=== PATIENT | male | born 1960 | race Caucasian/White ===

== ENCOUNTER → 2016-08-13 | Outpatient (CLI) | payer MEDICARE, BC ==
--- NOTE | 2016-08-13 11:35 | XR ---
EXAMINATION TYPE: XR cervical spine comp DATE OF EXAM: 08/13/2016 11:31 AM COMPARISON: NONE HISTORY: Pain Odontoid, frontal, lateral, and bilateral oblique views of the cervical spine are submitted. The odontoid is intact. There are no compression deformities. The prevertebral soft tissue structur es are within normal limits. Hypertrophic changes are seen anteriorly with severe degenerative disc disease C5-C6. Facet arthropathy at all levels. Foraminal encroachment C5-C6. Mild degenerative disc disease C3-C4 and C6-C7. IMPRESSION: 1. Multilevel degenerative disc disease with severe changes at C5-C6.
--- NOTE | 2016-08-13 11:35 | XR ---
EXAMINATION TYPE: XR chest 2V DATE OF EXAM: 08/13/2016 11:31 AM COMPARISON: NONE HISTORY: Pain FINDINGS: The lungs are clear and there is no pneumothorax, pleural effusion, or focal pneumonia. Mild hypert rophic change of the spine. IMPRESSION: 1. No acute process.
--- NOTE | 2016-08-13 11:38 | XR ---
EXAMINATION TYPE: XR thoracic spine complete DATE OF EXAM: 08/13/2016 11:31 AM COMPARISON: NONE HISTORY: Pain Alignment is anatomic. There is no compression deformities. Mild multilevel degenerative disc diseas e with hypertrophic changes anteriorly. No compression deformities. IMPRESSION: 1. No acute abnormality.
--- NOTE | 2016-08-13 11:38 | XR ---
EXAM TYPE: LUMBAR SPINE X RAY SERIES COMPARISON: 05/24/2014 HISTORY: Pain FINDINGS: Alignment is anatomic. The pedicles are intact. The transverse processes are intact. There is post surgical change which appears in near-anatomic alignment. Hypertrophic changes are seen anteriorly at all levels with severe degenerative disc disease L2-L3 and L4-L5. Moderate changes at L3-L4 and L1/L 2. IMPRESSION: 1. Postsurgical change in near-anatomic alignment. 2. Multilevel moderate to severe degenerative disc disease
== END | disposition home or self-care (01) ==
LOC: RADXRMAIN 10:46
PROVIDERS: ATTEND Family Medicine
DX: Z00.01 Encounter for general adult medical examination with abnormal findings (principal); M50.31 Other cervical disc degeneration, high cervical region; M51.36 Other intervertebral disc degeneration, lumbar region; G43.709 Chronic migraine without aura, not intractable, without status migrainosus; M19.90 Unspecified osteoarthritis, unspecified site; Z98.890 Other specified postprocedural states
CPT/HCPCS: 71020; 72050; 72072; 72110

== ENCOUNTER 2018-04-12 11:21 | Inpatient (IN) | payer MEDICARE, BC ==
--- NOTE | 2018-04-12 12:02 | ED ---
General Adult HPI - General Chief complaint: Psychiatric Symptoms Stated complaint: EPS eval Source: patient, police Mode of arrival: ambulatory Limitations: no limitations - History of Present Illness Initial comments: Dictation was produced using [employer] dictation software. please excuse any grammatical, word or spelling errors. Chief Complaint: 57-year-old male brought in by police for mental evaluation History of Present Illness: Patient 57-year-old male past medical history of psychiatric disease presents via police for mental evaluation. Patient states he does not know why he is here except that he believes that his mother called patient told he needed a mental evaluation. Blood force was not here for further HPI. According the edition documentation policewoman observed patient having active visual or auditory hallucinations. Patient was also slightly incoherent. Documentation also reports that patient took mother's medications, Q's in her sleep around, displaying districted behavior and being more aggressive than usual. The ROS documented in this emergency department record has been reviewed and confirmed by me. Those systems with pertinent positive or negative responses have been documented in the HPI. All other systems are other negative and/or noncontributory. - Related Data Home Medications Medication Instructions Recorded Confirmed Aspirin EC [Ecotrin Low Dose] 81 mg PO DAILY 04/13/18 04/13/18 Multivit-Min/FA/Lycopen/Lutein 1 tab PO DAILY 04/13/18 04/13/18 [Centrum Silver Tablet] Allergies Allergy/AdvReac Type Severity Reaction Status Date / Time No Known Allergies Allergy Verified 04/13/18 07:38 Review of Systems ROS Statement: Those systems with pertinent positive or pertinent negative responses have been documented in the HPI. ROS Other: All systems not noted in ROS Statement are negative. Past Medical History Additional Past Medical History / Comment(s): Closed head injury History of Any Multi-Drug Resistant Organisms: None Reported Past Surgical History: Back Surgery Past Psychological History: Unable to Obtain Smoking Status: Current some day smoker Past Alcohol Use History: Daily Past Drug Use History: None Reported General Exam - General Exam Comments Initial Comments: PHYSICAL EXAM: General Impression: Alert and oriented x3, not in acute distress HEENT: Normocephalic atraumatic, extra-ocular movements intact, pupils equal and reactive to light bilaterally, mucous membranes moist. Cardiovascular: Heart regular rate and rhythm, S1&S2 audible, no murmurs, rubs or gallops Chest: Lungs clear to auscultation bilaterally, no rhonchi, no wheeze, no rales Abdomen: Bowel sounds present, abdomen soft, non-tender, non-distended, no organomegaly Musculoskeletal: Pulses present and equal in all extremities, no peripheral edema Motor: Power 5/5 bilaterally, no focal deficits noted Neurological: CN II-XII grossly intact, no focal motor or sensory deficits noted Skin: Intact with no visualized rashes Psych: Fleeting and manic speech Limitations: no limitations Course Vital Signs 04/12/18 04/12/18 04/13/18 11:24 20:37 06:00 Temperature 98.6 F 98.1 F 98.0 F Pulse Rate 105 H 88 78 Respiratory 18 18 18 Rate Blood Pressure 156/85 163/82 155/82 O2 Sat by Pulse 96 96 96 Oximetry 04/13/18 15:48 Temperature Pulse Rate 95 Respiratory 18 Rate Blood Pressure 167/69 O2 Sat by Pulse 97 Oximetry Medical Decision Making - Medical Decision Making ED course: Patient is a 57-year-old male with presumed history of psychiatric disease presents with petition by police for symptoms of psychosis and aggressive behavior. Vital signs upon arrival shows heart rate of 105, rest of vital signs within normal limits. Physical examination shows well-appearing male in no acute distress. Patient examining signs of psychosis. Patient was value by EPS. Patient be admitted to inpatient psychiatry. - Lab Data Result diagrams: 04/12/18 12:03 04/12/18 12:03 Lab Results 04/12/18 04/12/18 04/12/18 Range/Units 12:03 12:03 18:44 WBC 9.8 (3.8-10.6) k/uL RBC 4.66 (4.30-5.90) m/uL Hgb 15.8 (13.0-17.5) gm/dL Hct 45.0 (39.0-53.0) % MCV 96.5 (80.0-100.0) fL MCH 33.8 (25.0-35.0) pg MCHC 35.0 (31.0-37.0) g/dL RDW 12.9 (11.5-15.5) % Plt Count 183 (150-450) k/uL Neutrophils % 80 % Lymphocytes % 10 % Monocytes % 6 % Eosinophils % 1 % Basophils % 1 % Neutrophils # 7.9 H (1.3-7.7) k/uL Lymphocytes # 1.0 (1.0-4.8) k/uL Monocytes # 0.6 (0-1.0) k/uL Eosinophils # 0.1 (0-0.7) k/uL Basophils # 0.1 (0-0.2) k/uL Sodium 141 (137-145) mmol/L Potassium 3.7 (3.5-5.1) mmol/L Chloride 106 (98-107) mmol/L Carbon Dioxide 26 (22-30) mmol/L Anion Gap 9 mmol/L BUN 21 H (9-20) mg/dL Creatinine 0.64 L (0.66-1.25) mg/dL Est GFR (CKD-EPI)AfAm >90 (>60 ml/min/1.73 sqM) Est GFR (CKD-EPI)NonAf >90 (>60 ml/min/1.73 sqM) Glucose 104 H (74-99) mg/dL Calcium 9.3 (8.4-10.2) mg/dL Urine Color Yellow Urine Appearance Cloudy (Clear) Urine pH 5.5 (5.0-8.0) Ur Specific [place] 1.022 (1.001-1.035) Urine Protein 1+ H (Negative) Urine Glucose (UA) Negative (Negative) Urine Ketones 2+ H (Negative) Urine Blood Negative (Negative) Urine Nitrite Negative (Negative) Urine Bilirubin Negative (Negative) Urine Urobilinogen 2.0 (<2.0) mg/dL Ur Leukocyte Esterase Large H (Negative) Urine RBC 3 (0-5) /hpf Urine WBC 57 H (0-5) /hpf Ur Squamous Epith Cells 5 H (0-4) /hpf Amorphous Sediment Occasional H (None) /hpf Urine Mucus Many H (None) /hpf Urine Opiates Screen Not Detected (NotDetected) Ur Oxycodone Screen Not Detected (NotDetected) Urine Methadone Screen Not Detected (NotDetected) Ur Propoxyphene Screen Not Detected (NotDetected) Ur Barbiturates Screen Not Detected (NotDetected) U Tricyclic Antidepress Not Detected (NotDetected) Ur Phencyclidine Scrn Not Detected (NotDetected) Ur Amphetamines Screen Not Detected (NotDetected) U Methamphetamines Scrn Not Detected (NotDetected) U Benzodiazepines Scrn Not Detected (NotDetected) Urine Cocaine Screen Not Detected (NotDetected) U Marijuana (THC) Screen Detected H (NotDetected) Serum Alcohol <10 mg/dL Disposition Clinical Impression: Psychosis Disposition: ADMITTED IP TO THIS [facility] Condition: Good Decision Time: 16:57
[2018-04-12 12:17] LABS: Basophils # (A) 0.1 k/uL (0-0.2); Basophils % (A) 1 %; Eosinophils # (A) 0.1 k/uL (0-0.7); Eosinophils % (A) 1 %; HGB 15.8 gm/dL (13.0-17.5); Lymphocytes % (A) 10 %; MCH 33.8 pg (25.0-35.0); MCV 96.5 fL (80.0-100.0); Mean Platelet Volume 7.1; Monocytes # (A) 0.6 k/uL (0-1.0); Monocytes % (A) 6 %; Neutrophils # (A) 7.9 k/uL (1.3-7.7); Neutrophils % (A) 80 %; Platelet Count 183 k/uL (150-450); RBC 4.66 m/uL (4.30-5.90); RDW 12.9 % (11.5-15.5); WBC 9.8 k/uL (3.8-10.6)
[2018-04-12 12:26] LABS: Alcohol <10 mg/dL; Anion Gap 9 mmol/L; Blood Urea Nitrogen 21 mg/dL (9-20); Calcium 9.3 mg/dL (8.4-10.2); Carbon Dioxide 26 mmol/L (22-30); Chloride 106 mmol/L (98-107); Glucose 104 mg/dL (74-99); Potassium 3.7 mmol/L (3.5-5.1); Sodium 141 mmol/L (137-145)
[2018-04-12 18:55] LABS: Amorphous Sediment,Urine Occasional /hpf; Appearance,Urine Cloudy (Clear); Bilirubin,Urine Negative (Negative); Blood,Urine Negative (Negative); Color,Urine Yellow; Glucose,Urine (UA) Negative (Negative); Ketones,Urine 2+ (Negative); Leukocyte Esterase,Urine Large (Negative); Mucus,Urine Many /hpf; Nitrite,Urine Negative (Negative); PH, Urine 5.5 (5.0-8.0); Protein,Urine 1+ (Negative); RBC,Urine 3 /hpf (0-5); Specific Gravity,Urine 1.022 (1.001-1.035); Squamous Epithelial Cell,Urine 5 /hpf (0-4); WBC,Urine 57 /hpf (0-5)
[2018-04-12 19:02] LABS: Amphetamine Screen,Urine Not Detected (NotDetected); Barbiturate Screen,Urine Not Detected (NotDetected); Benzodiazepines Screen,Urine Not Detected (NotDetected); Cocaine Screen,Urine Not Detected (NotDetected); Methadone Screen, Urine Not Detected (NotDetected); Opiate Screen,Urine Not Detected (NotDetected); Oxycodone Screen, Urine Not Detected (NotDetected); Phencyclidine Screen,Urine Not Detected (NotDetected); Tricyclic Antidepressant,Urine Not Detected (NotDetected); Urn Cannabinoid Scrn Detected (NotDetected)
[2018-04-13] MEDS ORDERED: OLANZapine 10 MG TAB PO STA (11:40)
[2018-04-13] MEDS: LORazepam 2 MG/ML INJ IM PRN (22:50)
[2018-04-13] MEDS: ZIPRASIDONE 20 MG VIAL IM PRN (22:51)
[2018-04-14] MEDS: ACETAMINOPHEN TAB 325 MG TAB PO PRN (08:01)
[2018-04-14] MEDS: ASPIRIN 81 MG PO SCH (08:02)
[2018-04-14 09:54] LABS: Basophils # (A) 0.1 k/uL (0-0.2); Basophils % (A) 1 %; Eosinophils # (A) 0.1 k/uL (0-0.7); Eosinophils % (A) 1 %; HCT 48.6 % (39.0-53.0); HGB 16.1 gm/dL (13.0-17.5); Lymphocytes # (A) 0.9 k/uL (1.0-4.8); Lymphocytes % (A) 8 %; MCH 32.7 pg (25.0-35.0); MCHC 33.1 g/dL (31.0-37.0); MCV 98.5 fL (80.0-100.0); Mean Platelet Volume 7.1; Monocytes # (A) 0.5 k/uL (0-1.0); Monocytes % (A) 5 %; Neutrophils # (A) 9.7 k/uL (1.3-7.7); Neutrophils % (A) 86 %; Platelet Count 192 k/uL (150-450); RBC 4.94 m/uL (4.30-5.90); RDW 12.9 % (11.5-15.5); WBC 11.3 k/uL (3.8-10.6)
[2018-04-14 10:21] LABS: ALT 36 U/L (21-72); AST 43 U/L (17-59); Albumin 3.9 g/dL (3.5-5.0); Alkaline Phosphatase 83 U/L (38-126); Anion Gap 10 mmol/L; Blood Urea Nitrogen 21 mg/dL (9-20); Calcium 9.3 mg/dL (8.4-10.2); Carbon Dioxide 27 mmol/L (22-30); Chloride 104 mmol/L (98-107); Glucose 98 mg/dL (74-99); Potassium 3.7 mmol/L (3.5-5.1); Sodium 141 mmol/L (137-145); Total Bilirubin 2.5 mg/dL (0.2-1.3); Total Protein 6.8 g/dL (6.3-8.2)
--- NOTE | 2018-04-14 13:04 | CONS ---
CONSULTATION DATE OF CONSULTATION: 04/14/2018 REASON FOR CONSULTATION: Medical management requested by Dr. Brice. CONSULTATION: This is a 57-year-old patient of Dr. Powell'sandra who presented to the ER, brought in by the police. Patient is not sure who called the umbrella repairer, thinks he may have called it because he is worried about his mother taught the patient to use a mental evaluation. Pull report from the ER. The patient is having some visual and auditory hallucinations, has been also slightly incoherent. Patient apparently was taking his mother's medications and patient is more aggressive than usual. The patient is rather uncooperative during the interview, but often times she is vague. Patient just complains of low growing toenails on the right foot and has seen a instructor traffic safety in the past. The patient also got a dry boil that is below the right buttock. The patient does smoke occasionally and does medical marijuana for several reasons. Appetite is fair. No fever. Up and about. REVIEW OF SYSTEMS: CONSTITUTIONAL: None. HEENT: None. RESPIRATORY: None. CARDIOVASCULAR: None. GASTROINTESTINAL: None. GENITOURINARY: None. MUSCULOSKELETAL: None. DERMATOLOGICAL: As above, growing nails on the right foot. PSYCHIATRY: Some confusion occasionally, aggressive behavior. NEUROLOGICAL: None. PAST MEDICAL HISTORY: Closed head injury. PAST SURGICAL HISTORY: Lower back surgery. SOCIAL HISTORY: The patient smokes occasionally, medical marijuana for multiple reasons, lives with his mother, retired from [employer]. FAMILY HISTORY: Reviewed, noncontributory to presentation. HOME MEDICATIONS: Centrum Silver 1 tablet p.o. daily, aspirin 81 mg daily. ALLERGIES: None. PHYSICAL EXAMINATION: Temperature 97.7, pulse 86, respirations 16, blood pressure 163/83, pulse ox 97% on room air. GENERAL APPEARANCE: Average built, sitting up, comfortable. EYES: Pupil equal, conjunctivae normal. HEENT: External appearance of nose and ears normal, oral cavity normal. NECK: JVD not raised. Mass not palpable. RESPIRATORY: Effort normal. LUNGS: Fair air entry. CARDIOVASCULAR: First and second sounds, no edema. ABDOMEN: Soft, nontender. Liver and spleen not palpable. LYMPHATIC: No lymph node palpable in neck or axillae.. PSYCHIATRY: The patient is able answer simple questions, extremely vague. DERMATOLOGICAL: The patient has a healing boil-like scabbing, just below the right buttock at the creased level. Also, the patient has got excessively growing nails of the right foot 2nd and 3rd toe 2nd and 3rd toe. NEUROLOGICAL: Grossly intact including cranial nerves grossly intact. INVESTIGATIONS: White count 9.3, hemoglobin 16.1, potassium 3.7, BUN 21, creatinine 0.77. UA positive. ASSESSMENT: 1. Acute urinary tract infection, probably cystitis. 2. Healing on the right buttock, improving. 3. Persistently growing nails with distortion on the right foot. Will need Podiatry intervention. 4. Chronic nicotine dependence. Patient smokes a variable amount of cigarettes. 5. Medical marijuana use. PLAN: The patient will be given a nicotine patch. Will consult Podiatry. Podiatry told this patient not to scratch his boil, which is actually healing. Patient should follow up with Dr. Powell upon discharge. MMODL / IJN: [id number] /
[2018-04-14] MEDS: CEPHALEXIN 500 MG CAP PO SCH ×3 (13:09→20:12)
[2018-04-14] MEDS: NICOTINE 7MG/24HR PATCH TRANSDERM SCH ×2 (13:09→13:13)
[2018-04-14] MEDS: MULTIVITAMINS, THERA 1 EACH TAB PO SCH (13:09)
--- NOTE | 2018-04-14 13:44 | P.HP ---
Psychiatric H&P - . H&P Date: 04/14/18 History & Physical: Allergies Allergy/AdvReac Type Severity Reaction Status Date / Time No Known Allergies Allergy Verified 04/13/18 07:38 Vital Signs Temp 97.7 F 04/14/18 06:31 Pulse 86 04/14/18 06:31 Resp 16 04/14/18 06:31 BP 163/83 04/14/18 06:31 Pulse Ox 97 04/13/18 15:48 Laboratory Last Values WBC 11.3 k/uL (3.8-10.6) H 04/14/18 09:15 RBC 4.94 m/uL (4.30-5.90) 04/14/18 09:15 Hgb 16.1 gm/dL (13.0-17.5) 04/14/18 09:15 Hct 48.6 % (39.0-53.0) 04/14/18 09:15 MCV 98.5 fL (80.0-100.0) 04/14/18 09:15 MCH 32.7 pg (25.0-35.0) 04/14/18 09:15 MCHC 33.1 g/dL (31.0-37.0) 04/14/18 09:15 RDW 12.9 % (11.5-15.5) 04/14/18 09:15 Plt Count 192 k/uL (150-450) 04/14/18 09:15 Neutrophils % 86 % 04/14/18 09:15 Lymphocytes % 8 % 04/14/18 09:15 Monocytes % 5 % 04/14/18 09:15 Eosinophils % 1 % 04/14/18 09:15 Basophils % 1 % 04/14/18 09:15 Neutrophils # 9.7 k/uL (1.3-7.7) H 04/14/18 09:15 Lymphocytes # 0.9 k/uL (1.0-4.8) L 04/14/18 09:15 Monocytes # 0.5 k/uL (0-1.0) 04/14/18 09:15 Eosinophils # 0.1 k/uL (0-0.7) 04/14/18 09:15 Basophils # 0.1 k/uL (0-0.2) 04/14/18 09:15 Sodium 141 mmol/L (137-145) 04/14/18 09:15 Potassium 3.7 mmol/L (3.5-5.1) 04/14/18 09:15 Chloride 104 mmol/L (98-107) 04/14/18 09:15 Carbon Dioxide 27 mmol/L (22-30) 04/14/18 09:15 Anion Gap 10 mmol/L 04/14/18 09:15 BUN 21 mg/dL (9-20) H 04/14/18 09:15 Creatinine 0.77 mg/dL (0.66-1.25) 04/14/18 09:15 Est GFR (CKD-EPI)AfAm >90 (>60 ml/min/1.73 sqM) 04/14/18 09:15 Est GFR (CKD-EPI)NonAf >90 (>60 ml/min/1.73 sqM) 04/14/18 09:15 Glucose 98 mg/dL (74-99) 04/14/18 09:15 Calcium 9.3 mg/dL (8.4-10.2) 04/14/18 09:15 Total Bilirubin 2.5 mg/dL (0.2-1.3) H 04/14/18 09:15 AST 43 U/L (17-59) 04/14/18 09:15 ALT 36 U/L (21-72) 04/14/18 09:15 Alkaline Phosphatase 83 U/L (38-126) 04/14/18 09:15 Total Protein 6.8 g/dL (6.3-8.2) 04/14/18 09:15 Albumin 3.9 g/dL (3.5-5.0) 04/14/18 09:15 TSH 1.490 mIU/L (0.465-4.680) 04/14/18 09:15 Urine Color Yellow 04/12/18 18:44 Urine Appearance Cloudy (Clear) 04/12/18 18:44 Urine pH 5.5 (5.0-8.0) 04/12/18 18:44 Ur Specific [place] 1.022 (1.001-1.035) 04/12/18 18:44 Urine Protein 1+ (Negative) H 04/12/18 18:44 Urine Glucose (UA) Negative (Negative) 04/12/18 18:44 Urine Ketones 2+ (Negative) H 04/12/18 18:44 Urine Blood Negative (Negative) 04/12/18 18:44 Urine Nitrite Negative (Negative) 04/12/18 18:44 Urine Bilirubin Negative (Negative) 04/12/18 18:44 Urine Urobilinogen 2.0 mg/dL (<2.0) 04/12/18 18:44 Ur Leukocyte Esterase Large (Negative) H 04/12/18 18:44 Urine RBC 3 /hpf (0-5) 04/12/18 18:44 Urine WBC 57 /hpf (0-5) H 04/12/18 18:44 Ur Squamous Epith Cells 5 /hpf (0-4) H 04/12/18 18:44 Amorphous Sediment Occasional /hpf (None) H 04/12/18 18:44 Urine Mucus Many /hpf (None) H 04/12/18 18:44 Urine Opiates Screen Not Detected (NotDetected) 04/12/18 18:44 Ur Oxycodone Screen Not Detected (NotDetected) 04/12/18 18:44 Urine Methadone Screen Not Detected (NotDetected) 04/12/18 18:44 Ur Propoxyphene Screen Not Detected (NotDetected) 04/12/18 18:44 Ur Barbiturates Screen Not Detected (NotDetected) 04/12/18 18:44 U Tricyclic Antidepress Not Detected (NotDetected) 04/12/18 18:44 Ur Phencyclidine Scrn Not Detected (NotDetected) 04/12/18 18:44 Ur Amphetamines Screen Not Detected (NotDetected) 04/12/18 18:44 U Methamphetamines Scrn Not Detected (NotDetected) 04/12/18 18:44 U Benzodiazepines Scrn Not Detected (NotDetected) 04/12/18 18:44 Urine Cocaine Screen Not Detected (NotDetected) 04/12/18 18:44 U Marijuana (THC) Screen Detected (NotDetected) H 04/12/18 18:44 Serum Alcohol <10 mg/dL 04/12/18 12:03 Chief Complaint: 57-year-old male brought in by police for mental evaluation History of Present Illness: Patient 57-year-old male past medical history of psychiatric disease presents via police for mental evaluation. Patient states he does not know why he is here except that he believes that his mother called patient told he needed a mental evaluation. Blood force was not here for further HPI. According the edition documentation police academy instructor observed patient having active visual or auditory hallucinations. Patient was also slightly incoherent. Documentation also reports that patient took mother's medications, Q's in her sleep around, displaying districted behavior and being more aggressive than usual. 04/14/18 13:22 Assessment and Plan (1) Psychosis Current Visit: Yes Status: Acute Priority: High Code(s): F29 - UNSP PSYCHOSIS NOT DUE TO A SUBSTANCE OR KNOWN PHYSIOL COND SNOMED Code(s): 62047986 Plan: Chief Complaint: 57-year-old male brought in by police for mental evaluation due to his agitation and confrontation of the place when the police were called to his house. History of Present Illness: Patient 57-year-old male past medical history of psychiatric disease presents via police for mental evaluation. Patient states he does not know why he is here except that he believes that his mother called patient told he needed a mental evaluation. According the edition documentation police academy instructor observed patient having active visual or auditory hallucinations. Patient was also slightly incoherent. Documentation also reports that patient took mother's medications, Q's in his thoughts being displaying districted behavior and being more aggressive than usual. Past Psychiatric History: [Patient unable to give an accurate history becomes irritable and agitated and accusing his civil rights being taken away and that he needs to talk to the FBI called [facility]] Drug/Alcohol Abuse History: [Unable to get accurate history because refuses to participate] Past Medical History Additional Past Medical History / Comment(s): Closed head injury History of Any Multi-Drug Resistant Organisms: None Reported Past Surgical History: Back Surgery Past Psychological History: Unable to Obtain Smoking Status: Current some day smoker Past Alcohol Use History: Daily Past Drug Use History: None Reported Current Medications: [None reported at the current time] Constitutional Review: [Inclines of his toenails] Musculoskeletal Examination - Abnormal/Involuntary Movements: [none,] Strength: [greater than antigravity (greater than/equal to 3/5) in all extremities] Muscle Tone: [no impairment] Gait: [grossly normal] Station: [grossly normal] Mental Status Examination - General Appearance: [disheveled, bizarre,appears older than stated age] Speech/Language: [ rapid, rambled, mumbling, hesitant, halting, expressive, soft , ] Attitude/Behavior: [ guarded, irritable, withdrawn, indifferent] Mood: [anxious, elated, irritable, angry] Affect: [llabile, blunted constricted] Orientation: [time, person, place situation does not participate and full orientation] Thought Content: delusions] Risk Factors: irritable and poor historian] Perception: [wnl] Thought Processes: [concrete, circumstantial, tangential] Concentration/Attention Span: [impaired] [Per observation and interview with the patient] Recent Memory: [ impaired] [0 out of 3 in 3 minutes] Remote Memory: [ impaired] [past events, as related history] Intelligence: [below average] [based on history, based on vocabulary, syntax, grammar, and content] Judgement: [poor] [per patient's behavior/history of present illness] Insight: [poor] [understanding severity of illness/history of present illness] Admitting Diagnosis: [Acute psychosis: [place]] Patient Strengths - Steady financial stability: Housing stability: Interpersonal relationships and supports available - family : Patient Limitations: [medication, non-compliance, pathological/unsupported environment, no interests, intellectual impairment Initial Plan of Care: [Patient was brought in by the [facility] with an application for involuntary hospitalization, clinical certification in the emergency room was filled out and a second certification for inpatient hospitalization was filled out today and placed in the chart. The patient is unable to participate in any treatment plan is angry irritable and agitated and walks out of the room without being able to sit and focus. Therefore he'll be admitted involuntary basis on [facility] unit for involuntary treatment on the psychiatric unit and at best will be a very difficult patient.] Estimated Length of Stay: [7-10 days] Initial Discharge Plan: [ [facility], referred to therapist] Prognosis: [ guarded] Justification for Inpatient Hospitalization - [agitation, anxiety resulting in significant loss of functioning.] [Dangerous to others, or property with need for controlled environment.] [Emotional or behavioral conditions and complications requiring 24 hour medical and nursing care.] [Need for special drug therapy, or other therapeutic program requiring continuous hospitalization.] [Failure of social functioning.] [Legally mandated admission.]
[2018-04-15] MEDS: CEPHALEXIN 500 MG CAP PO SCH ×3 (08:21→20:51)
[2018-04-15] MEDS: NICOTINE 7MG/24HR PATCH TRANSDERM SCH (08:21)
[2018-04-15] MEDS: ASPIRIN 81 MG PO SCH (08:21)
[2018-04-15] MEDS: MULTIVITAMINS, THERA 1 EACH TAB PO SCH (11:46)
--- NOTE | 2018-04-15 13:38 | P.PN ---
Subjective Progress Note Date: 04/15/18 Principal diagnosis: Acute psychosis Interval history today includes: Patient remains quite tense and irritable agitating wonders the unit History of Present Illness: Patient 57-year-old male past medical history of psychiatric disease presents via police for mental evaluation. Patient states he does not know why he is here except that he believes that his mother called patient told he needed a mental evaluation. Blood force was not here for further HPI. According the edition documentation police inspector observed patient having active visual or auditory hallucinations. Patient was also slightly incoherent. Documentation also reports that patient took mother's medications, Q's in her sleep around, displaying districted behavior and being more aggressive than usual. Past Medical History Additional Past Medical History / Comment(s): Closed head injury History of Any Multi-Drug Resistant Organisms: None Reported Past Surgical History: Back Surgery Past Psychological History: Unable to Obtain Smoking Status: Current some day smoker Past Alcohol Use History: Daily Past Drug Use History: None Reported Current Medications: [None reported at the current time] Constitutional Review: [Inclines of his toenails] Mental Status Examination - General Appearance: [disheveled, bizarre,appears older than stated age] Speech/Language: [ rapid, rambled, mumbling, hesitant, halting, expressive, soft , ] Attitude/Behavior: [ guarded, irritable, withdrawn, indifferent] Mood: [anxious, elated, irritable, angry] Affect: [llabile, blunted constricted] Orientation: [time, person, place situation does not participate and full orientation] Thought Content: delusions] Risk Factors: irritable and poor historian] Perception: [wnl] Thought Processes: [concrete, circumstantial, tangential] Concentration/Attention Span: [impaired] [Per observation and interview with the patient] Recent Memory: [ impaired] [0 out of 3 in 3 minutes] Remote Memory: [ impaired] [past events, as related history] Intelligence: [below average] [based on history, based on vocabulary, syntax, grammar, and content] Judgement: [poor] [per patient's behavior/history of present illness] Insight: [poor] [understanding severity of illness/history of present illness] Plan involuntary psychiatric hospitalization waiting for [address] and remain in a safe environment including staff. Client is not willing to participate in care at the present time. Objective - Vital Signs Vital signs: Vital Signs Temp 97.7 F 04/14/18 06:31 Pulse 86 04/14/18 06:31 Resp 16 04/14/18 06:31 BP 163/83 04/14/18 06:31 Pulse Ox 97 04/13/18 15:48 - Labs CBC & Chem 7: 04/14/18 09:15 04/14/18 09:15 Assessment and Plan (1) Psychosis Current Visit: Yes Status: Acute Priority: High Code(s): F29 - UNSP PSYCHOSIS NOT DUE TO A SUBSTANCE OR KNOWN PHYSIOL COND SNOMED Code(s): 12579539 Plan: Chief Complaint: 57-year-old male brought in by police for mental evaluation due to his agitation and confrontation of the place when the police were called to his house. History of Present Illness: Patient 57-year-old male past medical history of psychiatric disease presents via police for mental evaluation. Patient states he does not know why he is here except that he believes that his mother called patient told he needed a mental evaluation. According the edition documentation police inspector observed patient having active visual or auditory hallucinations. Patient was also slightly incoherent. Documentation also reports that patient took mother's medications, Q's in his thoughts being displaying districted behavior and being more aggressive than usual. Past Psychiatric History: [Patient unable to give an accurate history becomes irritable and agitated and accusing his civil rights being taken away and that he needs to talk to the FBI called [facility]] Drug/Alcohol Abuse History: [Unable to get accurate history because refuses to participate] Past Medical History Additional Past Medical History / Comment(s): Closed head injury History of Any Multi-Drug Resistant Organisms: None Reported Past Surgical History: Back Surgery Past Psychological History: Unable to Obtain Smoking Status: Current some day smoker Past Alcohol Use History: Daily Past Drug Use History: None Reported Current Medications: [None reported at the current time] Constitutional Review: [Inclines of his toenails] Musculoskeletal Examination - Abnormal/Involuntary Movements: [none,] Strength: [greater than antigravity (greater than/equal to 3/5) in all extremities] Muscle Tone: [no impairment] Gait: [grossly normal] Station: [grossly normal] Mental Status Examination - General Appearance: [disheveled, bizarre,appears older than stated age] Speech/Language: [ rapid, rambled, mumbling, hesitant, halting, expressive, soft , ] Attitude/Behavior: [ guarded, irritable, withdrawn, indifferent] Mood: [anxious, elated, irritable, angry] Affect: [llabile, blunted constricted] Orientation: [time, person, place situation does not participate and full orientation] Thought Content: delusions] Risk Factors: irritable and poor historian] Perception: [wnl] Thought Processes: [concrete, circumstantial, tangential] Concentration/Attention Span: [impaired] [Per observation and interview with the patient] Recent Memory: [ impaired] [0 out of 3 in 3 minutes] Remote Memory: [ impaired] [past events, as related history] Intelligence: [below average] [based on history, based on vocabulary, syntax, grammar, and content] Judgement: [poor] [per patient's behavior/history of present illness] Insight: [poor] [understanding severity of illness/history of present illness] Admitting Diagnosis: [Acute psychosis: [place]] Patient Strengths - Steady financial stability: Housing stability: Interpersonal relationships and supports available - family : Patient Limitations: [medication, non-compliance, pathological/unsupported environment, no interests, intellectual impairment Initial Plan of Care: [Patient was brought in by the [facility] with an application for involuntary hospitalization, clinical certification in the emergency room was filled out and a second certification for inpatient hospitalization was filled out today and placed in the chart. The patient is unable to participate in any treatment plan is angry irritable and agitated and walks out of the room without being able to sit and focus. Therefore he'll be admitted involuntary basis on [facility] unit for involuntary treatment on the psychiatric unit and at best will be a very difficult patient.] Estimated Length of Stay: [7-10 days] Initial Discharge Plan: [ [facility], referred to therapist] Prognosis: [ guarded] Justification for Inpatient Hospitalization - [agitation, anxiety resulting in significant loss of functioning.] [Dangerous to others, or property with need for controlled environment.] [Emotional or behavioral conditions and complications requiring 24 hour medical and nursing care.] [Need for special drug therapy, or other therapeutic program requiring continuous hospitalization.] [Failure of social functioning.] [Legally mandated admission.]
[2018-04-16] MEDS: ASPIRIN 81 MG PO SCH (08:02)
[2018-04-16] MEDS: NICOTINE 7MG/24HR PATCH TRANSDERM SCH (08:02)
[2018-04-16] MEDS: CEPHALEXIN 500 MG CAP PO SCH ×3 (08:02→20:41)
[2018-04-16] MEDS: MULTIVITAMINS, THERA 1 EACH TAB PO SCH (12:15)
--- NOTE | 2018-04-16 12:33 | P.PN ---
Subjective Progress Note Date: 04/16/18 Principal diagnosis: Acute psychosis Interval history today includes: Patient remains quite tense and irritable agitating wonders the unit History of Present Illness: Patient 57-year-old male past medical history of psychiatric disease presents via police for mental evaluation. Patient states he does not know why he is here except that he believes that his mother called patient told he needed a mental evaluation. Blood force was not here for further HPI. According the edition documentation police reserves commander observed patient having active visual or auditory hallucinations. Patient was also slightly incoherent. Documentation also reports that patient took mother's medications, Q's in her sleep around, displaying districted behavior and being more aggressive than usual. Past Medical History Additional Past Medical History / Comment(s): Closed head injury History of Any Multi-Drug Resistant Organisms: None Reported Past Surgical History: Back Surgery Past Psychological History: Unable to Obtain Smoking Status: Current some day smoker Past Alcohol Use History: Daily Past Drug Use History: None Reported Current Medications: [None reported at the current time] Constitutional Review: [Inclines of his toenails] Mental Status Examination - General Appearance: [disheveled, bizarre,appears older than stated age] Speech/Language: [ rapid, rambled, mumbling, hesitant, halting, expressive, soft , ] Attitude/Behavior: [ guarded, irritable, withdrawn, indifferent] Mood: [anxious, elated, irritable, angry] Affect: [llabile, blunted constricted] Orientation: [time, person, place situation does not participate and full orientation] Thought Content: delusions] Risk Factors: irritable and poor historian] Perception: [wnl] Thought Processes: [concrete, circumstantial, tangential] Concentration/Attention Span: [impaired] [Per observation and interview with the patient] Recent Memory: [ impaired] [0 out of 3 in 3 minutes] Remote Memory: [ impaired] [past events, as related history] Intelligence: [below average] [based on history, based on vocabulary, syntax, grammar, and content] Judgement: [poor] [per patient's behavior/history of present illness] Insight: [poor] [understanding severity of illness/history of present illness] Plan involuntary psychiatric hospitalization waiting for [address] and remain in a safe environment including staff. Client is not willing to participate in care at the present time. Objective - Vital Signs Vital signs: Vital Signs Temp 98 F 04/16/18 06:08 Pulse 89 04/16/18 06:08 Resp 20 04/16/18 06:08 BP 171/89 04/16/18 06:08 Pulse Ox 97 04/13/18 15:48 - Labs CBC & Chem 7: 04/14/18 09:15 04/14/18 09:15 Assessment and Plan (1) Psychosis Current Visit: Yes Status: Acute Priority: High Code(s): F29 - UNSP PSYCHOSIS NOT DUE TO A SUBSTANCE OR KNOWN PHYSIOL COND SNOMED Code(s): 71757760
[2018-04-17] MEDS: ASPIRIN 81 MG PO SCH (09:02)
[2018-04-17] MEDS: NICOTINE 7MG/24HR PATCH TRANSDERM SCH (09:02)
[2018-04-17] MEDS: CEPHALEXIN 500 MG CAP PO SCH ×3 (09:02→21:43)
--- NOTE | 2018-04-17 10:04 | P.PN ---
Subjective Progress Note Date: 04/17/18 Principal diagnosis: Acute psychosis Interval history today includes: Patient remains quite tense and irritable agitating wonders the unit he is not participating in any treatment at the present time. History of Present Illness: Patient 57-year-old male past medical history of psychiatric disease presents via police for mental evaluation. Patient states he does not know why he is here except that he believes that his mother called patient told he needed a mental evaluation. Blood force was not here for further HPI. According the edition documentation police officer crime prevention observed patient having active visual or auditory hallucinations. Patient was also slightly incoherent. Documentation also reports that patient took mother's medications, Q's in her sleep around, displaying districted behavior and being more aggressive than usual. Past Medical History Additional Past Medical History / Comment(s): Closed head injury History of Any Multi-Drug Resistant Organisms: None Reported Past Surgical History: Back Surgery Past Psychological History: Unable to Obtain Smoking Status: Current some day smoker Past Alcohol Use History: Daily Past Drug Use History: None Reported Current Medications: [None reported at the current time] Constitutional Review: [Inclines of his toenails] Mental Status Examination - General Appearance: [disheveled, bizarre,appears older than stated age] Speech/Language: [ rapid, rambled, mumbling, hesitant, halting, expressive, soft , ] Attitude/Behavior: [ guarded, irritable, withdrawn, indifferent] Mood: [anxious, elated, irritable, angry] Affect: [llabile, blunted constricted] Orientation: [time, person, place situation does not participate and full orientation] Thought Content: delusions] Risk Factors: irritable and poor historian] Perception: [wnl] Thought Processes: [concrete, circumstantial, tangential] Concentration/Attention Span: [impaired] [Per observation and interview with the patient] Recent Memory: [ impaired] [0 out of 3 in 3 minutes] Remote Memory: [ impaired] [past events, as related history] Intelligence: [below average] [based on history, based on vocabulary, syntax, grammar, and content] Judgement: [poor] [per patient's behavior/history of present illness] Insight: [poor] [understanding severity of illness/history of present illness] Plan involuntary psychiatric hospitalization waiting for [address] and remain in a safe environment including staff. Client is not willing to participate in care at the present time. Objective - Vital Signs Vital signs: Vital Signs Temp 98.7 F 04/17/18 04:28 Pulse 80 04/17/18 04:28 Resp 20 04/16/18 06:08 BP 150/90 04/17/18 04:28 Pulse Ox 97 04/13/18 15:48 - Labs CBC & Chem 7: 04/14/18 09:15 04/14/18 09:15 Assessment and Plan (1) Psychosis Current Visit: Yes Status: Acute Priority: High Code(s): F29 - UNSP PSYCHOSIS NOT DUE TO A SUBSTANCE OR KNOWN PHYSIOL COND SNOMED Code(s): 88740458
--- NOTE | 2018-04-17 11:28 | P.GSHP ---
History of Present Illness H&P Date: 04/17/18 Chief Complaint: Elongated painful nails bilateral Patient is being seen for treatment of painful elongated nails. Patient at this time is agitated and is on the care for psychosis. It appears patient is not ready to have these nails removed on today's date. Past Medical History Additional Past Medical History / Comment(s): Closed head injury History of Any Multi-Drug Resistant Organisms: None Reported Past Surgical History: Back Surgery Smoking Status: Current every day smoker Medications and Allergies Home Medications Medication Instructions Recorded Confirmed Type Aspirin EC [Ecotrin Low Dose] 81 mg PO DAILY 04/13/18 04/17/18 History Multivit-Min/FA/Lycopen/Lutein 1 tab PO DAILY 04/13/18 04/17/18 History [Centrum Silver Tablet] Allergies Allergy/AdvReac Type Severity Reaction Status Date / Time No Known Allergies Allergy Verified 04/17/18 05:31 Surgical - Exam Vital Signs Temp Pulse Resp BP Pulse Ox 98.6 F 105 H 18 156/85 96 04/12/18 11:24 04/12/18 11:24 04/12/18 11:24 04/12/18 11:24 04/12/18 11:24 - General Patient was walking the floors with apparent agitation and psychosis. Results - Labs 04/14/18 09:15 04/14/18 09:15 Assessment and Plan Assessment: Painful elongated nails 10 Agitated psychosis Plan: Exam. Review medical history. Due to the patient's current mental status will reschedule patient for treatment of these nails. We will not be able to safely reduce these with patient's current agitated status.
[2018-04-17] MEDS: MULTIVITAMINS, THERA 1 EACH TAB PO SCH (11:51)
[2018-04-17] MEDS: ZIPRASIDONE 20 MG VIAL IM PRN (12:58)
[2018-04-17] MEDS: LORazepam 2 MG/ML INJ IM PRN (12:59)
[2018-04-17] MEDS ORDERED: chlorproMAZINE 25 MG/ML 2 ML AMP IM PRN (13:10)
[2018-04-18] MEDS: LORazepam 2 MG/ML INJ IM PRN (01:33)
[2018-04-18] MEDS: NICOTINE 7MG/24HR PATCH TRANSDERM SCH (11:05)
[2018-04-18] MEDS: ASPIRIN 81 MG PO SCH (11:23)
[2018-04-18] MEDS: CEPHALEXIN 500 MG CAP PO SCH ×3 (11:23→20:41)
[2018-04-18] MEDS: MULTIVITAMINS, THERA 1 EACH TAB PO SCH (12:30)
[2018-04-18] MEDS: MAGNESIUM HYDROXIDE 2,400 MG/10 ML CUP PO PRN ×2 (13:54→20:40)
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
[2018-04-18] MEDS: chlorproMAZINE 25 MG TAB PO SCH ×3 (16:05→20:45)
[2018-04-18] MEDS: MAG HYDROX/AL HYDROX/SIMETH 30 ML CUP PO PRN (20:40)
[2018-04-19] MEDS: CEPHALEXIN 500 MG CAP PO SCH ×4 (09:48→20:40)
[2018-04-19] MEDS: ASPIRIN 81 MG PO SCH (09:48)
[2018-04-19] MEDS: NICOTINE 7MG/24HR PATCH TRANSDERM SCH (09:49)
[2018-04-19] MEDS: chlorproMAZINE 25 MG TAB PO SCH ×3 (09:51→20:43)
[2018-04-19] MEDS: MULTIVITAMINS, THERA 1 EACH TAB PO SCH (12:07)
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
[2018-04-19] MEDS: ACETAMINOPHEN TAB 325 MG TAB PO PRN (16:49)
[2018-04-19] MEDS: MAG HYDROX/AL HYDROX/SIMETH 30 ML CUP PO PRN (20:42)
[2018-04-20] MEDS: ASPIRIN 81 MG PO SCH (07:59)
[2018-04-20] MEDS: CEPHALEXIN 500 MG CAP PO SCH ×3 (08:00→20:38)
[2018-04-20] MEDS: NICOTINE 7MG/24HR PATCH TRANSDERM SCH (08:00)
[2018-04-20] MEDS: chlorproMAZINE 25 MG TAB PO SCH ×3 (08:00→20:37)
[2018-04-20] MEDS: MAGNESIUM HYDROXIDE 2,400 MG/10 ML CUP PO PRN (08:02)
--- NOTE | 2018-04-20 09:52 | P.PN ---
Subjective Progress Note Date: 04/20/18 Principal diagnosis: Acute psychosis Interval history today includes: Patient remains quite tense and irritable agitating wonders the unit he is not participating in any treatment at the present time. History of Present Illness: Patient 57-year-old male past medical history of psychiatric disease presents via police for mental evaluation. Patient states he does not know why he is here except that he believes that his mother called patient told he needed a mental evaluation. Blood force was not here for further HPI. According the edition documentation police chief deputy observed patient having active visual or auditory hallucinations. Patient was also slightly incoherent. Documentation also reports that patient took mother's medications, Q's in her sleep around, displaying districted behavior and being more aggressive than usual. Past Medical History Additional Past Medical History / Comment(s): Closed head injury History of Any Multi-Drug Resistant Organisms: None Reported Past Surgical History: Back Surgery Past Psychological History: Unable to Obtain Smoking Status: Current some day smoker Past Alcohol Use History: Daily Past Drug Use History: None Reported Current Medications: [None reported at the current time] Constitutional Review: [Inclines of his toenails] Mental Status Examination - General Appearance: [disheveled, bizarre,appears older than stated age] Speech/Language: [ rapid, rambled, mumbling, hesitant, halting, expressive, soft , ] Attitude/Behavior: [ guarded, irritable, withdrawn, indifferent] Mood: [anxious, elated, irritable, angry] Affect: [llabile, blunted constricted] Orientation: [time, person, place situation does not participate and full orientation] Thought Content: delusions] Risk Factors: irritable and poor historian] Perception: [wnl] Thought Processes: [concrete, circumstantial, tangential] Concentration/Attention Span: [impaired] [Per observation and interview with the patient] Recent Memory: [ impaired] [0 out of 3 in 3 minutes] Remote Memory: [ impaired] [past events, as related history] Intelligence: [below average] [based on history, based on vocabulary, syntax, grammar, and content] Judgement: [poor] [per patient's behavior/history of present illness] Insight: [poor] [understanding severity of illness/history of present illness] Plan involuntary psychiatric hospitalization waiting for [address] and remain in a safe environment including staff. Client is not willing to participate in care at the present time. Objective - Vital Signs Vital signs: Vital Signs Temp 98.3 F 04/20/18 00:17 Pulse 94 04/20/18 00:17 Resp 16 04/20/18 00:17 BP 137/80 04/20/18 00:17 Pulse Ox 97 04/13/18 15:48 Intake & Output 04/19/18 04/20/18 04/20/18 18:59 06:59 18:59 Weight 84.5 kg - Labs CBC & Chem 7: 04/14/18 09:15 04/14/18 09:15 Assessment and Plan (1) Psychosis Current Visit: Yes Status: Acute Priority: High Code(s): F29 - UNSP PSYCHOSIS NOT DUE TO A SUBSTANCE OR KNOWN PHYSIOL COND SNOMED Code(s): 97604200
[2018-04-20] MEDS: ACETAMINOPHEN TAB 325 MG TAB PO PRN ×2 (10:29→15:12)
[2018-04-20] MEDS: MULTIVITAMINS, THERA 1 EACH TAB PO SCH (10:30)
[2018-04-20 12:28] LABS: Amorphous Sediment,Urine Rare /hpf; Appearance,Urine Cloudy (Clear); Bilirubin,Urine Negative (Negative); Blood,Urine Negative (Negative); Color,Urine Light Yellow; Glucose,Urine (UA) Negative (Negative); Ketones,Urine Negative (Negative); Leukocyte Esterase,Urine Negative (Negative); Mucus,Urine Rare /hpf; Nitrite,Urine Negative (Negative); Protein,Urine Negative (Negative); RBC,Urine 2 /hpf (0-5); Specific Gravity,Urine 1.007 (1.001-1.035); Urobilinogen,Urine <2.0 mg/dL (<2.0); WBC,Urine 2 /hpf (0-5)
[2018-04-21] MEDS: ACETAMINOPHEN TAB 325 MG TAB PO PRN ×2 (02:55→11:33)
[2018-04-21] MEDS: ASPIRIN 81 MG PO SCH (09:10)
[2018-04-21] MEDS: MULTIVITAMINS, THERA 1 EACH TAB PO SCH (09:10)
[2018-04-21] MEDS: chlorproMAZINE 25 MG TAB PO SCH ×3 (09:11→20:31)
[2018-04-21] MEDS: DOCUSATE 100 MG CAP PO SCH ×2 (11:32→20:31)
--- NOTE | 2018-04-21 14:19 | P.PN ---
Subjective Progress Note Date: 04/21/18 Principal diagnosis: Acute psychosis Interval history today includes: Patient remains quite tense and irritable agitating wonders the unit he is not participating in any treatment at the present time. I approached patient today about him going court tomorrow he became enraged and walked away. History of Present Illness: Patient 57-year-old male past medical history of psychiatric disease presents via police for mental evaluation. Patient states he does not know why he is here except that he believes that his mother called patient told he needed a mental evaluation. Blood force was not here for further HPI. According the edition documentation vice squad police officer observed patient having active visual or auditory hallucinations. Patient was also slightly incoherent. Documentation also reports that patient took mother's medications, Q's in her sleep around, displaying districted behavior and being more aggressive than usual. Past Medical History Additional Past Medical History / Comment(s): Closed head injury History of Any Multi-Drug Resistant Organisms: None Reported Past Surgical History: Back Surgery Past Psychological History: Unable to Obtain Smoking Status: Current some day smoker Past Alcohol Use History: Daily Past Drug Use History: None Reported Current Medications: [None reported at the current time] Constitutional Review: [Inclines of his toenails] Mental Status Examination - General Appearance: [disheveled, bizarre,appears older than stated age] Speech/Language: [ rapid, rambled, mumbling, hesitant, halting, expressive, soft , ] Attitude/Behavior: [ guarded, irritable, withdrawn, indifferent] Mood: [anxious, elated, irritable, angry] Affect: [labile, blunted constricted] Orientation: [time, person, place situation does not participate and full orientation] Thought Content: delusions] Risk Factors: irritable and poor historian] Perception: [wnl] Thought Processes: [concrete, circumstantial, tangential] Concentration/Attention Span: [impaired] [Per observation and interview with the patient] Recent Memory: [ impaired] [0 out of 3 in 3 minutes] Remote Memory: [ impaired] [past events, as related history] Intelligence: [below average] [based on history, based on vocabulary, syntax, grammar, and content] Judgement: [poor] [per patient's behavior/history of present illness] Insight: [poor] [understanding severity of illness/history of present illness] Plan involuntary psychiatric hospitalization waiting for probate [address] and remain in a safe environment including staff. Client is not willing to participate in care at the present time. Objective - Vital Signs Vital signs: Vital Signs Temp 98.1 F 04/21/18 00:51 Pulse 83 04/21/18 00:51 Resp 16 04/21/18 00:51 BP 158/90 04/21/18 10:02 Pulse Ox 97 04/13/18 15:48 - Labs CBC & Chem 7: 04/14/18 09:15 04/14/18 09:15 Assessment and Plan (1) Psychosis Current Visit: Yes Status: Acute Priority: High Code(s): F29 - UNSP PSYCHOSIS NOT DUE TO A SUBSTANCE OR KNOWN PHYSIOL COND SNOMED Code(s): 50582141
[2018-04-21] MEDS: LORazepam 1 MG TAB PO PRN (20:58)
[2018-04-21] MEDS: MAGNESIUM HYDROXIDE 2,400 MG/10 ML CUP PO PRN (21:02)
[2018-04-22] MEDS: ASPIRIN 81 MG PO SCH (07:39)
[2018-04-22] MEDS: DOCUSATE 100 MG CAP PO SCH ×2 (07:39→20:59)
[2018-04-22] MEDS: chlorproMAZINE 25 MG TAB PO SCH ×2 (07:39→16:17)
--- NOTE | 2018-04-22 10:24 | P.PN ---
Subjective Progress Note Date: 04/22/18 Principal diagnosis: Acute psychosis Interval history today includes: Patient remains quite tense and irritable agitating wonders the unit he is not participating in any treatment at the present time. Again I approached the patient today regarding court and help, help him his response was inappropriate angry agitated tangential and confused. History of Present Illness: Patient 57-year-old male past medical history of psychiatric disease presents via police for mental evaluation. Patient states he does not know why he is here except that he believes that his mother called patient told he needed a mental evaluation. Blood force was not here for further HPI. According the edition documentation global safety officer observed patient having active visual or auditory hallucinations. Patient was also slightly incoherent. Documentation also reports that patient took mother's medications, Q's in her sleep around, displaying districted behavior and being more aggressive than usual. Past Medical History Additional Past Medical History / Comment(s): Closed head injury History of Any Multi-Drug Resistant Organisms: None Reported Past Surgical History: Back Surgery Past Psychological History: Unable to Obtain Smoking Status: Current some day smoker Past Alcohol Use History: Daily Past Drug Use History: None Reported Current Medications: [None reported at the current time] Constitutional Review: [Inclines of his toenails] Mental Status Examination - General Appearance: [disheveled, bizarre,appears older than stated age] Speech/Language: [ rapid, rambled, mumbling, hesitant, halting, expressive, soft , ] Attitude/Behavior: [ guarded, irritable, withdrawn, indifferent] Mood: [anxious, elated, irritable, angry] Affect: [labile, blunted constricted] Orientation: [time, person, place situation does not participate and full orientation] Thought Content: delusions] Risk Factors: irritable and poor historian] Perception: [wnl] Thought Processes: [concrete, circumstantial, tangential] Concentration/Attention Span: [impaired] [Per observation and interview with the patient] Recent Memory: [ impaired] [0 out of 3 in 3 minutes] Remote Memory: [ impaired] [past events, as related history] Intelligence: [below average] [based on history, based on vocabulary, syntax, grammar, and content] Judgement: [poor] [per patient's behavior/history of present illness] Insight: [poor] [understanding severity of illness/history of present illness] Plan involuntary psychiatric hospitalization waiting for probate Court today at 2 PM and remain in a safe environment including staff. Client is not willing to participate in care at the present time. Objective - Vital Signs Vital signs: Vital Signs Temp 97.5 F L 04/22/18 06:41 Pulse 79 04/22/18 06:41 Resp 16 04/22/18 06:41 BP 171/90 04/22/18 06:41 Pulse Ox 97 04/13/18 15:48 - Labs CBC & Chem 7: 04/14/18 09:15 04/14/18 09:15 Assessment and Plan (1) Psychosis Current Visit: Yes Status: Acute Priority: High Code(s): F29 - UNSP PSYCHOSIS NOT DUE TO A SUBSTANCE OR KNOWN PHYSIOL COND SNOMED Code(s): 52138467
[2018-04-22] MEDS: LORazepam 1 MG TAB PO PRN (10:36)
[2018-04-22] MEDS: ACETAMINOPHEN TAB 325 MG TAB PO PRN (10:37)
[2018-04-22] MEDS: MULTIVITAMINS, THERA 1 EACH TAB PO SCH (10:37)
[2018-04-22] MEDS ORDERED: HALOPERIDOL LACTATE 5 MG/ML 1 ML VIAL IM PRN (16:18)
[2018-04-22] MEDS: HALOPERIDOL 1 MG TAB PO SCH (20:57)
[2018-04-23] MEDS: ACETAMINOPHEN TAB 325 MG TAB PO PRN ×3 (07:19→20:15)
[2018-04-23] MEDS: HALOPERIDOL 1 MG TAB PO SCH (09:55)
[2018-04-23] MEDS: ASPIRIN 81 MG PO SCH (09:56)
[2018-04-23] MEDS: DOCUSATE 100 MG CAP PO SCH ×3 (09:57→20:07)
[2018-04-23 11:40] VITALS: BMI 25.2
[2018-04-23] MEDS: MULTIVITAMINS, THERA 1 EACH TAB PO SCH (12:17)
--- NOTE | 2018-04-23 15:51 | P.PN ---
Subjective Progress Note Date: 04/23/18 Principal diagnosis: Acute psychosis Interval history today includes: Patient remains tense and less irritable. Still wondersa hallway. wonders the unit he is not participating in any treatment at the present time. Again I approached the patient today regarding court and help, help him his response was inappropriate angry agitated tangential and confused. History of Present Illness: Patient 57-year-old male past medical history of psychiatric disease presents via police for mental evaluation. Patient states he does not know why he is here except that he believes that his mother called patient told he needed a mental evaluation. Blood force was not here for further HPI. According the edition documentation police chief deputy observed patient having active visual or auditory hallucinations. Patient was also slightly incoherent. Documentation also reports that patient took mother's medications, Q's in her sleep around, displaying districted behavior and being more aggressive than usual. Past Medical History Additional Past Medical History / Comment(s): Closed head injury History of Any Multi-Drug Resistant Organisms: None Reported Past Surgical History: Back Surgery Past Psychological History: Unable to Obtain Smoking Status: Current some day smoker Past Alcohol Use History: Daily Past Drug Use History: None Reported Current Medications: [None reported at the current time] Constitutional Review: [Inclines of his toenails] Mental Status Examination - General Appearance: [disheveled, bizarre,appears older than stated age] Speech/Language: [ rapid, rambled, mumbling, hesitant, halting, expressive, soft , ] Attitude/Behavior: [ guarded, irritable, withdrawn, indifferent] Mood: [anxious, elated, irritable, angry] Affect: [labile, blunted constricted] Orientation: [time, person, place situation does not participate and full orientation] Thought Content: delusions] Risk Factors: irritable and poor historian] Perception: [wnl] Thought Processes: [concrete, circumstantial, tangential] Concentration/Attention Span: [impaired] [Per observation and interview with the patient] Recent Memory: [ impaired] [0 out of 3 in 3 minutes] Remote Memory: [ impaired] [past events, as related history] Intelligence: [below average] [based on history, based on vocabulary, syntax, grammar, and content] Judgement: [poor] [per patient's behavior/history of present illness] Insight: [poor] [understanding severity of illness/history of present illness] Plan involuntary psychiatric hospitalization and remain in a safe environment including staff. Client is not willing to participate in care at the present time. Patient has side effects to Haldol and will try risperdone. "I use to take valium and librium and my doctor wrote for that, so can I get it " discussed it is not appropriate. Objective - Vital Signs Vital signs: Vital Signs Temp 98.2 F 04/23/18 06:42 Pulse 72 04/23/18 06:42 Resp 18 04/23/18 06:42 BP 138/85 04/23/18 06:42 Pulse Ox 97 04/13/18 15:48 Intake & Output 04/22/18 04/23/18 04/23/18 18:59 06:59 18:59 Weight 84.5 kg - Labs CBC & Chem 7: 04/14/18 09:15 04/14/18 09:15 Assessment and Plan (1) Psychosis Current Visit: Yes Status: Acute Priority: High Code(s): F29 - UNSP PSYCHOSIS NOT DUE TO A SUBSTANCE OR KNOWN PHYSIOL COND SNOMED Code(s): 97963156
[2018-04-23] MEDS: risperiDONE 0.25 MG TAB PO SCH (20:04)
[2018-04-24] MEDS: ACETAMINOPHEN TAB 325 MG TAB PO PRN ×5 (00:31→20:02)
[2018-04-24] MEDS: MAGNESIUM HYDROXIDE 2,400 MG/10 ML CUP PO PRN (00:33)
[2018-04-24] MEDS: DOCUSATE 100 MG CAP PO SCH ×2 (07:43→20:01)
[2018-04-24] MEDS: ASPIRIN 81 MG PO SCH (07:43)
[2018-04-24] MEDS: MULTIVITAMINS, THERA 1 EACH TAB PO SCH (12:31)
--- NOTE | 2018-04-24 13:31 | P.PN ---
Subjective Progress Note Date: 04/24/18 Principal diagnosis: Acute psychosis Interval history today includes: Patient remains less tense and less irritable. Still wonders hallway. wonders the unit he is not participating in any treatment at the present time. History of Present Illness: Patient 57-year-old male past medical history of psychiatric disease presents via police for mental evaluation. Patient states he does not know why he is here except that he believes that his mother called patient told he needed a mental evaluation. Blood force was not here for further HPI. According the edition documentation [employer] [place] police observed patient having active visual or auditory hallucinations. Patient was also slightly incoherent. Documentation also reports that patient took mother's medications. Past Medical History Additional Past Medical History / Comment(s): Closed head injury History of Any Multi-Drug Resistant Organisms: None Reported Past Surgical History: Back Surgery Past Psychological History: Unable to Obtain Smoking Status: Current some day smoker Past Alcohol Use History: Daily Past Drug Use History: None Reported Current Medications: [None reported at the current time] Constitutional Review: [Inclines of his toenails] Mental Status Examination - General Appearance: [disheveled, bizarre,appears older than stated age] Speech/Language: [ rapid, rambled, mumbling, hesitant, halting, expressive, soft , ] Attitude/Behavior: [ guarded, irritable, withdrawn, indifferent] Mood: [anxious, elated, irritable, angry] Affect: [labile, blunted constricted] Orientation: [time, person, place situation does not participate and full orientation] Thought Content: delusions] Risk Factors: irritable and poor historian] Perception: [wnl] Thought Processes: [concrete, circumstantial, tangential] Concentration/Attention Span: [impaired] [Per observation and interview with the patient] Recent Memory: [ impaired] [0 out of 3 in 3 minutes] Remote Memory: [ impaired] [past events, as related history] Intelligence: [below average] [based on history, based on vocabulary, syntax, grammar, and content] Judgement: [poor] [per patient's behavior/history of present illness] Insight: [poor] [understanding severity of illness/history of present illness] Plan involuntary psychiatric hospitalization and remain in a safe environment including staff. Client is not willing to participate in care at the present time. Patient is taking risperdone without side effects.. "I use to take valium and librium and my doctor wrote for that, so can I get it " discussed it is not appropriate. Objective - Vital Signs Vital signs: Vital Signs Temp 97.7 F 04/23/18 14:00 Pulse 70 04/23/18 14:00 Resp 14 04/23/18 14:00 BP 151/82 04/23/18 14:00 Pulse Ox 97 04/13/18 15:48 Intake & Output 04/23/18 04/24/18 04/24/18 18:59 06:59 18:59 Weight 84.5 kg - Labs CBC & Chem 7: 04/14/18 09:15 04/14/18 09:15 Assessment and Plan (1) Psychosis Current Visit: Yes Status: Acute Priority: High Code(s): F29 - UNSP PSYCHOSIS NOT DUE TO A SUBSTANCE OR KNOWN PHYSIOL COND SNOMED Code(s): 51782787
[2018-04-24] MEDS: risperiDONE 0.25 MG TAB PO SCH (20:43)
[2018-04-25] MEDS: ACETAMINOPHEN TAB 325 MG TAB PO PRN ×3 (02:40→20:01)
[2018-04-25] MEDS: LORazepam 1 MG TAB PO PRN ×2 (02:44→10:48)
[2018-04-25] MEDS: ASPIRIN 81 MG PO SCH (08:40)
[2018-04-25] MEDS: DOCUSATE 100 MG CAP PO SCH ×2 (08:41→21:26)
--- NOTE | 2018-04-25 08:46 | P.PN ---
Subjective Progress Note Date: 04/25/18 Principal diagnosis: Acute psychosis Interval history today includes: Patient remains less tense and less irritable. Still wonders hallway. wonders the unit he is not participating in any treatment at the present time. History of Present Illness: Patient 57-year-old male past medical history of psychiatric disease presents via police for mental evaluation. Patient states he does not know why he is here except that he believes that his mother called patient told he needed a mental evaluation. Blood force was not here for further HPI. According the edition documentation crime prevention police officer observed patient having active visual or auditory hallucinations. Patient was also slightly incoherent. Documentation also reports that patient took mother's medications. Past Medical History Additional Past Medical History / Comment(s): Closed head injury History of Any Multi-Drug Resistant Organisms: None Reported Past Surgical History: Back Surgery Past Psychological History: Unable to Obtain Smoking Status: Current some day smoker Past Alcohol Use History: Daily Past Drug Use History: None Reported Current Medications: [None reported at the current time] Constitutional Review: [Inclines of his toenails] Mental Status Examination - General Appearance: [disheveled, bizarre,appears older than stated age] Speech/Language: [ rapid, rambled, mumbling, hesitant, halting, expressive, soft , ] Attitude/Behavior: [ guarded, irritable, withdrawn, indifferent] Mood: [anxious, elated, irritable, angry] Affect: [labile, blunted constricted] Orientation: [time, person, place situation does not participate and full orientation] Thought Content: delusions] Risk Factors: irritable and poor historian] Perception: [wnl] Thought Processes: [concrete, circumstantial, tangential] Concentration/Attention Span: [impaired] [Per observation and interview with the patient] Recent Memory: [ impaired] [0 out of 3 in 3 minutes] Remote Memory: [ impaired] [past events, as related history] Intelligence: [below average] [based on history, based on vocabulary, syntax, grammar, and content] Judgement: [poor] [per patient's behavior/history of present illness] Insight: [poor] [understanding severity of illness/history of present illness] Plan involuntary psychiatric hospitalization and remain in a safe environment including staff. Client is not willing to participate in care at the present time. Patient is taking risperdone without side effects.. Objective - Vital Signs Vital signs: Vital Signs Temp 97.5 F L 04/25/18 06:20 Pulse 91 04/25/18 08:01 Resp 18 04/25/18 08:01 BP 125/71 04/25/18 08:01 Pulse Ox 97 04/13/18 15:48 - Labs CBC & Chem 7: 04/14/18 09:15 04/14/18 09:15 Assessment and Plan (1) Psychosis Current Visit: Yes Status: Acute Priority: High Code(s): F29 - UNSP PSYCHOSIS NOT DUE TO A SUBSTANCE OR KNOWN PHYSIOL COND SNOMED Code(s): 30885598
[2018-04-25] MEDS: MAG HYDROX/AL HYDROX/SIMETH 30 ML CUP PO PRN (10:48)
[2018-04-25] MEDS: MULTIVITAMINS, THERA 1 EACH TAB PO SCH (11:10)
[2018-04-25] MEDS ORDERED: LORazepam 2 MG/ML INJ IM STA (12:22)
[2018-04-25] MEDS ORDERED: ZIPRASIDONE 20 MG VIAL IM STA (12:22)
[2018-04-25] MEDS: CALCIUM CARBONATE LIQUID 500 MG/5 ML CUP PO SCH ×3 (12:36→21:22)
[2018-04-25] MEDS: IBUPROFEN 600 MG TAB PO SCH ×2 (16:25→21:24)
[2018-04-25] MEDS: risperiDONE 0.5 MG TAB PO SCH (22:15)
[2018-04-26] MEDS: ACETAMINOPHEN TAB 325 MG TAB PO PRN ×3 (02:50→20:50)
[2018-04-26] MEDS: CALCIUM CARBONATE LIQUID 500 MG/5 ML CUP PO SCH ×5 (03:04→20:50)
[2018-04-26] MEDS: DOCUSATE 100 MG CAP PO SCH ×2 (07:41→21:45)
[2018-04-26] MEDS: IBUPROFEN 600 MG TAB PO SCH ×3 (07:42→21:46)
[2018-04-26] MEDS: ASPIRIN 81 MG PO SCH (07:42)
[2018-04-26] MEDS: MULTIVITAMINS, THERA 1 EACH TAB PO SCH (07:43)
--- NOTE | 2018-04-26 09:18 | P.PN ---
Subjective Progress Note Date: 04/26/18 Principal diagnosis: Acute psychosis Interval history today includes: Patient remains less tense and less irritable. Still wonders hallway. wonders the unit he is not participating in any treatment at the present time. He now has hiccups History of Present Illness: Patient 57-year-old male past medical history of psychiatric disease presents via police for mental evaluation. Patient states he does not know why he is here except that he believes that his mother called patient told he needed a mental evaluation. Blood force was not here for further HPI. According the edition documentation postal delivery officer observed patient having active visual or auditory hallucinations. Patient was also slightly incoherent. Documentation also reports that patient took mother's medications. Past Medical History Additional Past Medical History / Comment(s): Closed head injury History of Any Multi-Drug Resistant Organisms: None Reported Past Surgical History: Back Surgery Past Psychological History: Unable to Obtain Smoking Status: Current some day smoker Past Alcohol Use History: Daily Past Drug Use History: None Reported Current Medications: [None reported at the current time] Constitutional Review: [Inclines of his toenails] Mental Status Examination - General Appearance: [disheveled, bizarre,appears older than stated age] Speech/Language: [ rapid, rambled, mumbling, hesitant, halting, expressive, soft , ] Attitude/Behavior: [ guarded, irritable, withdrawn, indifferent] Mood: [anxious, elated, irritable, angry] Affect: [labile, blunted constricted] Orientation: [time, person, place situation does not participate and full orientation] Thought Content: delusions] Risk Factors: irritable and poor historian] Perception: [wnl] Thought Processes: [concrete, circumstantial, tangential] Concentration/Attention Span: [impaired] [Per observation and interview with the patient] Recent Memory: [ impaired] [0 out of 3 in 3 minutes] Remote Memory: [ impaired] [past events, as related history] Intelligence: [below average] [based on history, based on vocabulary, syntax, grammar, and content] Judgement: [poor] [per patient's behavior/history of present illness] Insight: [poor] [understanding severity of illness/history of present illness] Plan involuntary psychiatric hospitalization and remain in a safe environment including staff. Client is not willing to participate in care at the present time. Patient is taking risperdone without side effects.. Objective - Vital Signs Vital signs: Vital Signs Temp 98.3 F 04/26/18 06:05 Pulse 94 04/26/18 06:05 Resp 16 04/26/18 06:05 BP 143/78 04/26/18 06:05 Pulse Ox 97 04/13/18 15:48 - Labs CBC & Chem 7: 04/14/18 09:15 04/14/18 09:15 Assessment and Plan (1) Psychosis Current Visit: Yes Status: Acute Priority: High Code(s): F29 - UNSP PSYCHOSIS NOT DUE TO A SUBSTANCE OR KNOWN PHYSIOL COND SNOMED Code(s): 90414888
[2018-04-26] MEDS ORDERED: PSYLLIUM HUSK 100% 6 GM PACKET PO STA (16:28)
[2018-04-26] MEDS: risperiDONE 0.5 MG TAB PO SCH (21:45)
[2018-04-27] MEDS: ACETAMINOPHEN TAB 325 MG TAB PO PRN ×3 (06:09→23:44)
[2018-04-27] MEDS: CALCIUM CARBONATE LIQUID 500 MG/5 ML CUP PO SCH ×4 (06:29→21:09)
[2018-04-27] MEDS: MULTIVITAMINS, THERA 1 EACH TAB PO SCH (08:54)
[2018-04-27] MEDS: ASPIRIN 81 MG PO SCH (08:54)
[2018-04-27] MEDS: IBUPROFEN 600 MG TAB PO SCH ×3 (08:55→21:10)
[2018-04-27] MEDS: DOCUSATE 100 MG CAP PO SCH ×2 (08:55→22:24)
--- NOTE | 2018-04-27 12:01 | P.PN ---
Subjective Progress Note Date: 04/27/18 Principal diagnosis: Acute psychosis Interval history today includes: Patient remains less tense and less irritable. Still wonders hallway. wonders the unit he is not participating in any treatment at the present time. He now has hiccups History of Present Illness: Patient 57-year-old male past medical history of psychiatric disease presents via police for mental evaluation. Patient states he does not know why he is here except that he believes that his mother called patient told he needed a mental evaluation. Blood force was not here for further HPI. According the edition documentation senior credit officer observed patient having active visual or auditory hallucinations. Patient was also slightly incoherent. Documentation also reports that patient took mother's medications. Past Medical History Additional Past Medical History / Comment(s): Closed head injury History of Any Multi-Drug Resistant Organisms: None Reported Past Surgical History: Back Surgery Past Psychological History: Unable to Obtain Smoking Status: Current some day smoker Past Alcohol Use History: Daily Past Drug Use History: None Reported Current Medications: [None reported at the current time] Constitutional Review: [Inclines of his toenails] Mental Status Examination - General Appearance: [disheveled, bizarre,appears older than stated age] Speech/Language: [ rapid, rambled, mumbling, hesitant, halting, expressive, soft , ] Attitude/Behavior: [ guarded, irritable, withdrawn, indifferent] Mood: [anxious, elated, irritable, angry] Affect: [labile, blunted constricted] Orientation: [time, person, place situation does not participate and full orientation] Thought Content: delusions] Risk Factors: irritable and poor historian] Perception: [wnl] Thought Processes: [concrete, circumstantial, tangential] Concentration/Attention Span: [impaired] [Per observation and interview with the patient] Recent Memory: [ impaired] [0 out of 3 in 3 minutes] Remote Memory: [ impaired] [past events, as related history] Intelligence: [below average] [based on history, based on vocabulary, syntax, grammar, and content] Judgement: [poor] [per patient's behavior/history of present illness] Insight: [poor] [understanding severity of illness/history of present illness] Plan involuntary psychiatric hospitalization and remain in a safe environment including staff. Client is not willing to participate in care at the present time. Patient is taking risperdone without side effects.. I want another doctor please transmitted to another doctor Objective - Vital Signs Vital signs: Vital Signs Temp 98.7 F 04/27/18 00:12 Pulse 81 04/27/18 00:12 Resp 16 04/27/18 00:12 BP 139/83 04/27/18 00:12 Pulse Ox 97 04/13/18 15:48 Intake & Output 04/26/18 04/27/18 04/27/18 18:59 06:59 18:59 Weight 88.003 kg - Labs CBC & Chem 7: 04/14/18 09:15 04/14/18 09:15 Assessment and Plan (1) Psychosis Current Visit: Yes Status: Acute Priority: High Code(s): F29 - UNSP PSYCHOSIS NOT DUE TO A SUBSTANCE OR KNOWN PHYSIOL COND SNOMED Code(s): 67662089
[2018-04-27] MEDS: risperiDONE 0.5 MG TAB PO SCH (21:09)
--- NOTE | 2018-04-28 05:23 | PN ---
PROGRESS NOTE DATE OF SERVICE: 04/27/2018. PRESENT COMPLAINT: Ate ChapStick. INTERVAL HISTORY: This patient actually ate ChapStick. He stated that he was told he was to put it on his teeth. The patient did have diarrhea for 2 days which has now completely settled. Patient tolerating his diet, feeling well. He is back to his normal self, up and about. REVIEW OF SYSTEMS: Done for constitutional, cardiovascular, GI, pulmonary; relevant findings as above. CURRENT MEDICATIONS: Reviewed. PHYSICAL EXAMINATION: Temperature 98.7, pulse 81, respiration 16, blood pressure 139/83. Pulse ox not noted. GENERAL APPEARANCE: Sitting up, comfortable. EYES: Pupils equal. Conjunctivae normal. HEENT: External appearance of nose and ears normal. Oral cavity normal. NECK: JVD not raised. Mass not palpable. RESPIRATORY: Effort, lungs are clear. CARDIOVASCULAR: 1st and 2nd sounds normal. No edema. ABDOMEN: Soft, nontender. Liver and spleen not palpable. PSYCHIATRY: Awake, answering questions appropriately. INVESTIGATIONS: No blood work from today. ASSESSMENT: 1. Acute urinary tract infection probably cystitis for which patient completed a course of antibiotics. 2. Patient swallowed ChapStick, had some diarrhea which is now settled. 3. Chronic nicotine dependence. 4. Medical marijuana use. PLAN: The patient is medically stable. No further additions to his treatment from my standpoint. MMODL / IJN: [id number] /
[2018-04-28] MEDS: CALCIUM CARBONATE LIQUID 500 MG/5 ML CUP PO SCH ×4 (08:02→20:46)
[2018-04-28] MEDS: ASPIRIN 81 MG PO SCH (08:02)
[2018-04-28] MEDS: DOCUSATE 100 MG CAP PO SCH ×2 (08:03→22:15)
[2018-04-28] MEDS: IBUPROFEN 600 MG TAB PO SCH ×3 (08:03→22:15)
[2018-04-28] MEDS: MULTIVITAMINS, THERA 1 EACH TAB PO SCH (11:40)
--- NOTE | 2018-04-28 15:13 | P.PN ---
Subjective Progress Note Date: 04/28/18 Principal diagnosis: Acute psychosis; bipolar affective disorder; elian Interval history today includes: Patient remains less tense and less irritable. Still wonders hallway. wonders the unit he is not participating in any treatment at the present time. History of Present Illness: Patient 57-year-old male past medical history of psychiatric disease presents via police for mental evaluation. Patient states he does not know why he is here except that he believes that his mother called patient told he needed a mental evaluation. Blood force was not here for further HPI. According the edition documentation secretary of police observed patient having active visual or auditory hallucinations. Patient was also slightly incoherent. Documentation also reports that patient took mother's medications. I want another doctor please transmitted to another doctor and will not get another doctor Objective - Vital Signs Vital signs: Vital Signs Temp 98.1 F 04/28/18 05:11 Pulse 91 04/28/18 05:11 Resp 20 04/28/18 05:11 BP 134/74 04/28/18 05:11 Pulse Ox 97 04/13/18 15:48 - Labs CBC & Chem 7: 04/14/18 09:15 04/14/18 09:15 Assessment and Plan Assessment: Past Medical History Additional Past Medical History / Comment(s): Closed head injury History of Any Multi-Drug Resistant Organisms: None Reported Past Surgical History: Back Surgery Past Psychological History: Unable to Obtain Smoking Status: Current some day smoker Past Alcohol Use History: Daily Past Drug Use History: None Reported Current Medications: [None reported at the current time] Constitutional Review: [Inclines of his toenails] Mental Status Examination - General Appearance: [disheveled, bizarre,appears older than stated age] Speech/Language: [ rapid, rambled, mumbling, hesitant, halting, expressive, soft , ] Attitude/Behavior: [ guarded, irritable, withdrawn, indifferent] Mood: [anxious, elated, irritable, angry] Affect: [labile, blunted constricted] Orientation: [time, person, place situation does not participate and full orientation] Thought Content: delusions] Risk Factors: irritable and poor historian] Perception: [wnl] Thought Processes: [concrete, circumstantial, tangential] Concentration/Attention Span: [impaired] [Per observation and interview with the patient] Recent Memory: [ impaired] [0 out of 3 in 3 minutes] Remote Memory: [ impaired] [past events, as related history] Intelligence: [below average] [based on history, based on vocabulary, syntax, grammar, and content] Judgement: [poor] [per patient's behavior/history of present illness] Insight: [poor] [understanding severity of illness/history of present illness] Plan involuntary psychiatric hospitalization and remain in a safe environment including staff. Client is not willing to participate in care at the present time. Patient will take invega 3 mg tonight, 6 mg tomorrow and 9 mg with conversion to IM on Friday 112 mg, if he refuses he will get thorazine injections (1) Psychosis Current Visit: Yes Status: Acute Priority: High Code(s): F29 - UNSP PSYCHOSIS NOT DUE TO A SUBSTANCE OR KNOWN PHYSIOL COND SNOMED Code(s): 58482191 Time with Patient: Less than 30
[2018-04-28] MEDS ORDERED: PALIPERIDONE 3 MG TAB.ER.24 PO SCH (21:00)
[2018-04-29] MEDS: ACETAMINOPHEN TAB 325 MG TAB PO PRN (02:46)
[2018-04-29] MEDS: IBUPROFEN 600 MG TAB PO SCH ×3 (07:50→20:34)
[2018-04-29] MEDS: DOCUSATE 100 MG CAP PO SCH ×2 (07:51→20:34)
[2018-04-29] MEDS: ASPIRIN 81 MG PO SCH (07:51)
[2018-04-29] MEDS: CALCIUM CARBONATE LIQUID 500 MG/5 ML CUP PO SCH ×4 (07:52→20:34)
[2018-04-29] MEDS: MULTIVITAMINS, THERA 1 EACH TAB PO SCH (07:53)
--- NOTE | 2018-04-29 12:08 | P.PN ---
Subjective Progress Note Date: 04/29/18 Principal diagnosis: Acute psychosis; bipolar affective disorder; soledad Interval history today includes: Patient remains less tense and less irritable. Still wonders hallway. wonders the unit he is not participating in any treatment at the present time. History of Present Illness: Patient 57-year-old male past medical history of psychiatric disease presents via police for mental evaluation. Patient states he does not know why he is here except that he believes that his mother called patient told he needed a mental evaluation. Blood force was not here for further HPI. According the edition documentation chief data officer observed patient having active visual or auditory hallucinations. Patient was also slightly incoherent. Documentation also reports that patient took mother's medications. He is now taking his medication Invega 3 mg at bedtime and will increase his dose today to 6 mg by mouth daily at bedtime Objective - Vital Signs Vital signs: Vital Signs Temp 98.2 F 04/29/18 06:10 Pulse 80 04/29/18 06:10 Resp 18 04/29/18 06:10 BP 150/81 04/29/18 06:10 Pulse Ox 97 04/13/18 15:48 - Labs CBC & Chem 7: 04/14/18 09:15 04/14/18 09:15 Assessment and Plan Assessment: Past Medical History Additional Past Medical History / Comment(s): Closed head injury History of Any Multi-Drug Resistant Organisms: None Reported Past Surgical History: Back Surgery Past Psychological History: Unable to Obtain Smoking Status: Current some day smoker Past Alcohol Use History: Daily Past Drug Use History: None Reported Current Medications: [None reported at the current time] Constitutional Review: [Inclines of his toenails] Mental Status Examination - General Appearance: [disheveled, bizarre,appears older than stated age] Speech/Language: [ rapid, rambled, mumbling, hesitant, halting, expressive, soft , ] Attitude/Behavior: [ guarded, irritable, withdrawn, indifferent] Mood: [anxious, elated, irritable, angry] Affect: [labile, blunted constricted] Orientation: [time, person, place situation does not participate and full orientation] Thought Content: delusions] Risk Factors: irritable and poor historian] Perception: [wnl] Thought Processes: [concrete, circumstantial, tangential] Concentration/Attention Span: [impaired] [Per observation and interview with the patient] Recent Memory: [ impaired] [0 out of 3 in 3 minutes] Remote Memory: [ impaired] [past events, as related history] Intelligence: [below average] [based on history, based on vocabulary, syntax, grammar, and content] Judgement: [poor] [per patient's behavior/history of present illness] Insight: [poor] [understanding severity of illness/history of present illness] Plan involuntary psychiatric hospitalization and remain in a safe environment including staff. Client is not willing to participate in care at the present time. Patient will take invega 6 mg with conversion to IM on Friday 112 mg, if he refuses he will get thorazine injections (1) Psychosis Current Visit: Yes Status: Acute Priority: High Code(s): F29 - UNSP PSYCHOSIS NOT DUE TO A SUBSTANCE OR KNOWN PHYSIOL COND SNOMED Code(s): 04415380 Plan: Chief Complaint: 57-year-old male brought in by police for mental evaluation due to his agitation and confrontation of the place when the police were called to his house. History of Present Illness: Patient 57-year-old male past medical history of psychiatric disease presents via police for mental evaluation. Patient states he does not know why he is here except that he believes that his mother called patient told he needed a mental evaluation. According the edition documentation chief data officer observed patient having active visual or auditory hallucinations. Patient was also slightly incoherent. Documentation also reports that patient took mother's medications, Q's in his thoughts being displaying districted behavior and being more aggressive than usual. Past Psychiatric History: [Patient unable to give an accurate history becomes irritable and agitated and accusing his civil rights being taken away and that he needs to talk to the FBI called [facility]] Drug/Alcohol Abuse History: [Unable to get accurate history because refuses to participate] Past Medical History Additional Past Medical History / Comment(s): Closed head injury History of Any Multi-Drug Resistant Organisms: None Reported Past Surgical History: Back Surgery Past Psychological History: Unable to Obtain Smoking Status: Current some day smoker Past Alcohol Use History: Daily Past Drug Use History: None Reported Current Medications: [None reported at the current time] Constitutional Review: [Inclines of his toenails] Musculoskeletal Examination - Abnormal/Involuntary Movements: [none,] Strength: [greater than antigravity (greater than/equal to 3/5) in all extremities] Muscle Tone: [no impairment] Gait: [grossly normal] Station: [grossly normal] Mental Status Examination - General Appearance: [disheveled, bizarre,appears older than stated age] Speech/Language: [ rapid, rambled, mumbling, hesitant, halting, expressive, soft , ] Attitude/Behavior: [ guarded, irritable, withdrawn, indifferent] Mood: [anxious, elated, irritable, angry] Affect: [llabile, blunted constricted] Orientation: [time, person, place situation does not participate and full orientation] Thought Content: delusions] Risk Factors: irritable and poor historian] Perception: [wnl] Thought Processes: [concrete, circumstantial, tangential] Concentration/Attention Span: [impaired] [Per observation and interview with the patient] Recent Memory: [ impaired] [0 out of 3 in 3 minutes] Remote Memory: [ impaired] [past events, as related history] Intelligence: [below average] [based on history, based on vocabulary, syntax, grammar, and content] Judgement: [poor] [per patient's behavior/history of present illness] Insight: [poor] [understanding severity of illness/history of present illness] Admitting Diagnosis: [Acute psychosis: Soledad] Patient Strengths - Steady financial stability: Housing stability: Interpersonal relationships and supports available - family : Patient Limitations: [medication, non-compliance, pathological/unsupported environment, no interests, intellectual impairment Initial Plan of Care: [Patient was brought in by the [facility] with an application for involuntary hospitalization, clinical certification in the emergency room was filled out and a second certification for inpatient hospitalization was filled out today and placed in the chart. The patient is unable to participate in any treatment plan is angry irritable and agitated and walks out of the room without being able to sit and focus. Therefore he'll be admitted involuntary basis on [facility] unit for involuntary treatment on the psychiatric unit and at best will be a very difficult patient.] Estimated Length of Stay: [7-10 days] Initial Discharge Plan: [ [facility], referred to therapist] Prognosis: [ guarded] Justification for Inpatient Hospitalization - [agitation, anxiety resulting in significant loss of functioning.] [Dangerous to others, or property with need for controlled environment.] [Emotional or behavioral conditions and complications requiring 24 hour medical and nursing care.] [Need for special drug therapy, or other therapeutic program requiring continuous hospitalization.] [Failure of social functioning.] [Legally mandated admission.] Time with Patient: Less than 30
[2018-04-29] MEDS ORDERED: PALIPERIDONE 6 MG TAB.ER.24 PO SCH (21:00)
[2018-04-30] MEDS: CALCIUM CARBONATE LIQUID 500 MG/5 ML CUP PO SCH ×4 (08:35→20:01)
[2018-04-30] MEDS: MULTIVITAMINS, THERA 1 EACH TAB PO SCH (08:35)
[2018-04-30] MEDS: DOCUSATE 100 MG CAP PO SCH ×2 (08:35→20:03)
[2018-04-30] MEDS: ASPIRIN 81 MG PO SCH (08:35)
[2018-04-30] MEDS: IBUPROFEN 600 MG TAB PO SCH ×4 (08:35→23:48)
--- NOTE | 2018-04-30 10:00 | P.PN ---
Subjective Progress Note Date: 04/30/18 Principal diagnosis: Acute psychosis; bipolar affective disorder; soledad Interval history today includes: Patient remains less tense and less irritable. Still wonders hallway. wonders the unit he is not participating in any treatment at the present time. History of Present Illness: Patient 57-year-old male past medical history of psychiatric disease presents via police for mental evaluation. Patient states he does not know why he is here except that he believes that his mother called patient told he needed a mental evaluation. Blood force was not here for further HPI. According the edition documentation [place] police lieutenant observed patient having active visual or auditory hallucinations. Patient was also slightly incoherent. Documentation also reports that patient took mother's medications. He is now taking his medication Invega 9 mg at bedtime. Objective - Vital Signs Vital signs: Vital Signs Temp 97.9 F 04/30/18 05:48 Pulse 85 04/30/18 05:48 Resp 18 04/30/18 05:48 BP 141/72 04/30/18 05:48 Pulse Ox 97 04/13/18 15:48 - Labs CBC & Chem 7: 04/14/18 09:15 04/14/18 09:15 Assessment and Plan Assessment: Past Medical History Additional Past Medical History / Comment(s): Closed head injury History of Any Multi-Drug Resistant Organisms: None Reported Past Surgical History: Back Surgery Past Psychological History: Unable to Obtain Smoking Status: Current some day smoker Past Alcohol Use History: Daily Past Drug Use History: None Reported Current Medications: [None reported at the current time] Constitutional Review: [Inclines of his toenails] Mental Status Examination - General Appearance: [disheveled, bizarre,appears older than stated age] Speech/Language: [ rapid, rambled, mumbling, hesitant, halting, expressive, soft , ] Attitude/Behavior: [ guarded, irritable, withdrawn, indifferent] Mood: [anxious, elated, irritable, angry] Affect: [labile, blunted constricted] Orientation: [time, person, place situation does not participate and full orientation] Thought Content: delusions] Risk Factors: irritable and poor historian] Perception: [wnl] Thought Processes: [concrete, circumstantial, tangential] Concentration/Attention Span: [impaired] [Per observation and interview with the patient] Recent Memory: [ impaired] [0 out of 3 in 3 minutes] Remote Memory: [ impaired] [past events, as related history] Intelligence: [below average] [based on history, based on vocabulary, syntax, grammar, and content] Judgement: [poor] [per patient's behavior/history of present illness] Insight: [poor] [understanding severity of illness/history of present illness] Plan involuntary psychiatric hospitalization and remain in a safe environment including staff. Client is not willing to participate in care at the present time. Patient will take invega 9 mg with conversion to IM on Friday 112 mg, if he refuses he will get thorazine injections (1) Psychosis Current Visit: Yes Status: Acute Priority: High Code(s): F29 - UNSP PSYCHOSIS NOT DUE TO A SUBSTANCE OR KNOWN PHYSIOL COND SNOMED Code(s): 03701381 Plan: Chief Complaint: 57-year-old male brought in by police for mental evaluation due to his agitation and confrontation of the place when the police were called to his house. History of Present Illness: Patient 57-year-old male past medical history of psychiatric disease presents via police for mental evaluation. Patient states he does not know why he is here except that he believes that his mother called patient told he needed a mental evaluation. According the edition documentation [place] police lieutenant observed patient having active visual or auditory hallucinations. Patient was also slightly incoherent. Documentation also reports that patient took mother's medications, Q's in his thoughts being displaying districted behavior and being more aggressive than usual. Past Psychiatric History: [Patient unable to give an accurate history becomes irritable and agitated and accusing his civil rights being taken away and that he needs to talk to the FBI called [facility]] Drug/Alcohol Abuse History: [Unable to get accurate history because refuses to participate] Past Medical History Additional Past Medical History / Comment(s): Closed head injury History of Any Multi-Drug Resistant Organisms: None Reported Past Surgical History: Back Surgery Past Psychological History: Unable to Obtain Smoking Status: Current some day smoker Past Alcohol Use History: Daily Past Drug Use History: None Reported Current Medications: [None reported at the current time] Constitutional Review: [Inclines of his toenails] Musculoskeletal Examination - Abnormal/Involuntary Movements: [none,] Strength: [greater than antigravity (greater than/equal to 3/5) in all extremities] Muscle Tone: [no impairment] Gait: [grossly normal] Station: [grossly normal] Mental Status Examination - General Appearance: [disheveled, bizarre,appears older than stated age] Speech/Language: [ rapid, rambled, mumbling, hesitant, halting, expressive, soft , ] Attitude/Behavior: [ guarded, irritable, withdrawn, indifferent] Mood: [anxious, elated, irritable, angry] Affect: [llabile, blunted constricted] Orientation: [time, person, place situation does not participate and full orientation] Thought Content: delusions] Risk Factors: irritable and poor historian] Perception: [wnl] Thought Processes: [concrete, circumstantial, tangential] Concentration/Attention Span: [impaired] [Per observation and interview with the patient] Recent Memory: [ impaired] [0 out of 3 in 3 minutes] Remote Memory: [ impaired] [past events, as related history] Intelligence: [below average] [based on history, based on vocabulary, syntax, grammar, and content] Judgement: [poor] [per patient's behavior/history of present illness] Insight: [poor] [understanding severity of illness/history of present illness] Admitting Diagnosis: [Acute psychosis: Soledad] Patient Strengths - Steady financial stability: Housing stability: Interpersonal relationships and supports available - family : Patient Limitations: [medication, non-compliance, pathological/unsupported environment, no interests, intellectual impairment Initial Plan of Care: [[facility], clinical certification in the emergency room was filled out and a second certification for inpatient hospitalization was filled out today and placed in the chart. The patient is unable to participate in any treatment plan is angry irritable and agitated and walks out of the room without being able to sit and focus. Therefore he'll be admitted involuntary basis on [facility] unit for involuntary treatment on the psychiatric unit and at best will be a very difficult patient.] Estimated Length of Stay: [7-10 days] Initial Discharge Plan: [ [facility], referred to therapist] Prognosis: [ guarded] Justification for Inpatient Hospitalization - [agitation, anxiety resulting in significant loss of functioning.] [Dangerous to others, or property with need for controlled environment.] [Emotional or behavioral conditions and complications requiring 24 hour medical and nursing care.] [Need for special drug therapy, or other therapeutic program requiring continuous hospitalization.] [Failure of social functioning.] [Legally mandated admission.] Time with Patient: Less than 30
[2018-04-30] MEDS ORDERED: PALIPERIDONE 3 MG TAB.ER.24 PO SCH (21:00)
[2018-05-01 06:40] VITALS: BP 153/77; PULSE 86; RESP 16; TEMP 97.8
[2018-05-01] MEDS: ASPIRIN 81 MG PO SCH (08:34)
[2018-05-01] MEDS: IBUPROFEN 600 MG TAB PO SCH (08:34)
[2018-05-01] MEDS: MULTIVITAMINS, THERA 1 EACH TAB PO SCH (08:35)
[2018-05-01] MEDS: DOCUSATE 100 MG CAP PO SCH (08:35)
[2018-05-01] MEDS: CALCIUM CARBONATE LIQUID 500 MG/5 ML CUP PO SCH ×2 (08:35→11:54)
--- NOTE | 2018-05-01 09:44 | P.DS ---
Providers Date of admission: 04/13/18 15:58 Expected date of discharge: 05/01/18 Attending physician: Yovani Brice DO Consults: 04/13/18 19:14 Consult Physician Routine Consulting Provider: Simone Johns Consult Reason/Comments: H & P Do you want consulting provider notified?: Yes 04/14/18 12:52 Consult Physician Routine Consulting Provider: Alvaro Garay Consult Reason/Comments: overgrown toe nails Do you want consulting provider notified?: Yes Primary care physician: Emeterio Powell - Discharge Diagnosis(es) (1) Psychosis History of Present Illness: Patient 57-year-old male past medical history of psychiatric disease presents via police for mental evaluation. Patient states he does not know why he is here except that he believes that his mother called patient told he needed a mental evaluation. Blood force was not here for further HPI. According the edition documentation police patrol lieutenant observed patient having active visual or auditory hallucinations. Patient was also slightly incoherent. Documentation also reports that patient took mother's medications. Current Visit: Yes Status: Acute Priority: Low Hospital Course: Assessment and Plan Assessment: Past Medical History Additional Past Medical History / Comment(s): Closed head injury History of Any Multi-Drug Resistant Organisms: None Reported Past Surgical History: Back Surgery Past Psychological History: Unable to Obtain Smoking Status: Current some day smoker Past Alcohol Use History: Daily Past Drug Use History: None Reported Current Medications: [None reported at the current time] Constitutional Review: [Inclines of his toenails] Mental Status Examination - General Appearance: [appears older than stated age] Speech/Language: [ rapid ] Attitude/Behavior: [ guarded] Mood: [anxious, elated, irritable, angry] Affect: [wnl] Orientation: [time, person, place situation does not participate and full orientation] Thought Content: wnl Risk Factors: wnl] Perception: [wnl] Thought Processes: [concrete, circumstantial, tangential] Concentration/Attention Span: [wnl] [Per observation and interview with the patient] Recent Memory: [ wnl] [3 out of 3 in 3 minutes] Remote Memory: [ impaired] [past events, as related history] Intelligence: [average] [based on history, based on vocabulary, syntax, grammar , and content] Judgement: [wnl] [per patient's behavior/history of present illness] Insight: [wnl] [understanding severity of illness/history of present illness] Patient Condition at Discharge: Stable Plan - Discharge Summary Discharge Rx Participant: Yes New Discharge Prescriptions: New Multivitamins, Thera [Multivitamin (formulary)] 1 each PO 1200 tab Paliperidone [Invega] 9 mg PO 2100 30 Days #30 tab.[email or web address] Discontinued Aspirin EC [Ecotrin Low Dose] 81 mg PO DAILY Multivit-Min/FA/Lycopen/Lutein [Centrum Silver Tablet] 1 tab PO DAILY Discharge Medication List Multivitamins, Thera [Multivitamin (formulary)] 1 each PO 1200 tab 05/01/18 [Rx ] Paliperidone [Invega] 9 mg PO 2100 30 Days #30 tab.[email or web address] 05/01/18 [Rx] Follow up Appointment(s)/Referral(s): Tomer Powell MD [Primary Care Provider] - 1-2 days Activity/Diet/Wound Care/Special Instructions: Activity and Diet as tolerated. Avoid the use of street drugs and alcohol. Take all medications as prescribed, when you are in need of refills contact your medical doctor or psychiatrist. Please go to all scheduled outpatient appointments for aftercare treatment. If symptoms return or worsen you can call the crisis line @ and/or return to the nearest emergency room for evaluation. Discharge Disposition: HOME SELF-CARE
== END 2018-05-01 14:02 | disposition home or self-care (01) | DRG 885 ==
LOC: EC 11:21 → 3MHU 04-13 15:58
PROVIDERS: ADMIT Psychiatry & Neurology Psychiatry; ATTEND Psychiatry & Neurology Psychiatry
DX: F31.2 Bipolar disorder, current episode manic severe with psychotic features (principal); N30.90 Cystitis, unspecified without hematuria; B35.1 Tinea unguium; L02.32 Furuncle of buttock; F17.210 Nicotine dependence, cigarettes, uncomplicated; F10.11 Alcohol abuse, in remission; Z91.19 Patient's noncompliance with other medical treatment and regimen; L60.3 Nail dystrophy; M54.9 Dorsalgia, unspecified; R06.6 Hiccough; R19.7 Diarrhea, unspecified; Z79.82 Long term (current) use of aspirin; Z79.899 Other long term (current) drug therapy; Z87.820 Personal history of traumatic brain injury
CPT/HCPCS: 36415; 80048; 80053; 80306; 80320; 81001; 82075; 84443; 85025; 99285

== ENCOUNTER 2018-05-12 18:11 | Inpatient (IN) | payer MEDICARE, BC ==
--- NOTE | 2018-05-12 19:46 | ED ---
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 Patient admits has not taken his medications that he was told to take a couple days ago because he can't afford them. Patient states she has no other reason to be here. Patient states patient states he does not want to be here he does know why he is here. Patient states he is being treated for some transient mental disorder which she does not know the name of. Patient states there was no disturbances house he lives with his mother and she did not complain about him doing anything. Patient denies any physical complaints today. Patient denies headache patient denies chest pain difficult breathing shortest breath per patient denies any recent fever chills or cough. Patient denies abdominal pain patient denies nausea vomiting diarrhea. - Related Data Home Medications Medication Instructions Recorded Confirmed Acetaminophen [Tylenol] 1,000 mg PO Q4-6H PRN 05/12/18 05/12/18 Aspirin [Adult Low Dose Aspirin EC] 81 mg PO DAILY 05/12/18 05/12/18 Multivitamins, Thera [Multivitamin 1 tab PO DAILY 05/12/18 05/12/18 (formulary)] Terbinafine [LamISIL] 250 mg PO DAILY 05/12/18 05/12/18 Allergies Allergy/AdvReac Type Severity Reaction Status Date / Time No Known Allergies Allergy Verified 05/12/18 18:53 Review of Systems ROS Statement: Those systems with pertinent positive or pertinent negative responses have been documented in the HPI. ROS Other: All systems not noted in ROS Statement are negative. Past Medical History Past Medical History: No Reported History Additional Past Medical History / Comment(s): Closed head injury History of Any Multi-Drug Resistant Organisms: None Reported Past Surgical History: Back Surgery Past Psychological History: No Psychological Hx Reported Smoking Status: Current every day smoker Past Alcohol Use History: Occasional Past Drug Use History: Marijuana General Exam - General Exam Comments Initial Comments: GENERAL: Patient is well-developed and well-nourished. Patient is nontoxic and well- hydrated and is in no acute distress. ENT: Neck is soft and supple. No significant lymphadenopathy is noted. Oropharynx is clear. Moist mucous membranes. Neck has full range of motion without eliciting any pain. EYES: The sclera were anicteric and conjunctiva were pink and moist. Extraocular movements were intact and pupils were equal round and reactive to light. Eyelids were unremarkable. PULMONARY: Unlabored respirations. Good breath sounds bilaterally. No audible rales rhonchi or wheezing was noted. CARDIOVASCULAR: There is a regular rate and rhythm without any murmurs gallops or rubs. ABDOMEN: Soft and nontender with normal bowel sounds. SKIN: Skin is clear with no lesions or rashes and otherwise unremarkable. NEUROLOGIC: Patient is alert and oriented x3. Cranial nerves II through XII are grossly intact. Motor and sensory are also intact. Normal speech, volume and content. Symmetrical smile. MUSCULOSKELETAL: Normal extremities with adequate strength and full range of motion. LYMPHATICS: No significant lymphadenopathy is noted PSYCHIATRIC: Normal psychiatric evaluation. Limitations: no limitations Course Vital Signs 05/12/18 18:14 Temperature 98.1 F Pulse Rate 110 H Respiratory 18 Rate Blood Pressure 150/77 O2 Sat by Pulse 98 Oximetry Medical Decision Making - Medical Decision Making Patient is court ordered to be admitted and patient is willing to be admitted because he likes psychiatrjustina about the rojas of his medication. Disposition Clinical Impression: H/O medication noncompliance Disposition: ADMITTED IP TO THIS HOSP Referrals: Tomer Powell MD [Primary Care Provider] - 1-2 days Time of Disposition: 20:53
[2018-05-12] MEDS ORDERED: MAGNESIUM HYDROXIDE 2,400 MG/10 ML CUP PO PRN (21:31)
[2018-05-12] MEDS ORDERED: ZIPRASIDONE 20 MG VIAL IM PRN (21:31)
[2018-05-12] MEDS ORDERED: LORazepam 1 MG TAB PO PRN (21:31)
[2018-05-12 21:42] LABS: Amphetamine Screen,Urine Not Detected (NotDetected); Barbiturate Screen,Urine Not Detected (NotDetected); Benzodiazepines Screen,Urine Not Detected (NotDetected); Cocaine Screen,Urine Not Detected (NotDetected); Methadone Screen, Urine Not Detected (NotDetected); Opiate Screen,Urine Not Detected (NotDetected); Oxycodone Screen, Urine Not Detected (NotDetected); Phencyclidine Screen,Urine Not Detected (NotDetected); Tricyclic Antidepressant,Urine Not Detected (NotDetected); Urn Cannabinoid Scrn Detected (NotDetected)
[2018-05-13 00:22] VITALS: BMI 27.8
[2018-05-13] MEDS: ACETAMINOPHEN TAB 325 MG TAB PO PRN ×2 (03:55→20:43)
[2018-05-13] MEDS: ASPIRIN 81 MG PO SCH (07:40)
[2018-05-13] MEDS: MULTIVITAMINS, THERA 1 EACH TAB PO SCH (07:40)
[2018-05-13 10:06] LABS: Basophils % (A) 1 %; Eosinophils # (A) 0.3 k/uL (0-0.7); Eosinophils % (A) 4 %; HCT 43.2 % (39.0-53.0); HGB 14.2 gm/dL (13.0-17.5); Lymphocytes # (A) 1.2 k/uL (1.0-4.8); Lymphocytes % (A) 16 %; MCHC 32.8 g/dL (31.0-37.0); MCV 100.5 fL (80.0-100.0); Macrocytosis Slight; Mean Platelet Volume 6.7; Monocytes # (A) 0.4 k/uL (0-1.0); Monocytes % (A) 5 %; Neutrophils # (A) 5.6 k/uL (1.3-7.7); Neutrophils % (A) 74 %; Platelet Count 234 k/uL (150-450); RDW 13.4 % (11.5-15.5); WBC 7.6 k/uL (3.8-10.6)
--- NOTE | 2018-05-13 10:12 | P.HP ---
Psychiatric H&P - . H&P Date: 05/13/18 History & Physical: Allergies Allergy/AdvReac Type Severity Reaction Status Date / Time No Known Allergies Allergy Verified 05/12/18 18:53 Vital Signs Temp 97.7 F 05/13/18 05:58 Pulse 67 05/13/18 05:58 Resp 18 05/13/18 05:58 BP 136/78 05/13/18 05:58 Pulse Ox 97 05/12/18 21:16 Intake & Output 05/12/18 05/13/18 05/13/18 18:59 06:59 18:59 Weight 90.718 kg 92.986 kg Laboratory Last Values Urine Opiates Screen Not Detected (NotDetected) 05/12/18 21:10 Ur Oxycodone Screen Not Detected (NotDetected) 05/12/18 21:10 Urine Methadone Screen Not Detected (NotDetected) 05/12/18 21:10 Ur Propoxyphene Screen Not Detected (NotDetected) 05/12/18 21:10 Ur Barbiturates Screen Not Detected (NotDetected) 05/12/18 21:10 U Tricyclic Antidepress Not Detected (NotDetected) 05/12/18 21:10 Ur Phencyclidine Scrn Not Detected (NotDetected) 05/12/18 21:10 Ur Amphetamines Screen Not Detected (NotDetected) 05/12/18 21:10 U Methamphetamines Scrn Not Detected (NotDetected) 05/12/18 21:10 U Benzodiazepines Scrn Not Detected (NotDetected) 05/12/18 21:10 Urine Cocaine Screen Not Detected (NotDetected) 05/12/18 21:10 U Marijuana (THC) Screen Detected (NotDetected) H 05/12/18 21:10 Assessment and Plan Assessment: History of Present Illness Initial comments: This is a 57-year-old male who is brought in by the police under a court order. Patient admits has not taken his medications that he was told to take a couple days ago because he can't afford them. Patient states she has no other reason to be here. Patient states patient states he does not want to be here he does know why he is here. Patient states he is being treated for some transient mental disorder which she does not know the name of. Patient states there was no disturbances house he lives with his mother and she did not complain about him doing anything. Patient denies any physical complaints today. Patient denies headache patient denies chest pain difficult breathing shortest breath per patient denies any recent fever chills or cough. Patient denies abdominal pain patient denies nausea vomiting diarrhea. - Related Data Home Medications Medication Instructions Recorded Confirmed Acetaminophen [Tylenol] 1,000 mg PO Q4-6H PRN 05/12/18 05/12/18 Aspirin [Adult Low Dose Aspirin EC] 81 mg PO DAILY 05/12/18 05/12/18 Multivitamins, Thera [Multivitamin 1 tab PO DAILY 05/12/18 05/12/18 (formulary)] Terbinafine [LamISIL] 250 mg PO DAILY 05/12/18 05/12/18 Allergies Allergy/AdvReac Type Severity Reaction Status Date / Time No Known Allergies Allergy Verified 05/12/18 18:53 History of Present Illness: Patient 57-year-old male past medical history of psychiatric disease presents via police for mental evaluation. Patient states he does not know why he is here except that he believes that his mother called patient told he needed a mental evaluation. Blood force was not here for further HPI. According the edition documentation police booking officer observed patient having active visual or auditory hallucinations. Patient was also slightly incoherent. Documentation also reports that patient took mother's medications. Current Visit: Yes Status: Acute Priority: Low Hospital Course: Assessment and Plan Assessment: Past Medical History Additional Past Medical History / Comment(s): Closed head injury History of Any Multi-Drug Resistant Organisms: None Reported Past Surgical History: Back Surgery Past Psychological History: Unable to Obtain Smoking Status: Current some day smoker Past Alcohol Use History: Daily Past Drug Use History: None Reported Current Medications: [None reported at the current time] Constitutional Review: [Inclines of his toenails] Mental Status Examination - General Appearance: [appears older than stated age] Speech/Language: [ rapid ] Attitude/Behavior: [ guarded] Mood: [anxious, elated, irritable, angry] Affect: [wnl] Orientation: [time, person, place situation does not participate and full orientation] Thought Content: wnl Risk Factors: wnl] Perception: [wnl] Thought Processes: [concrete, circumstantial, tangential] Concentration/Attention Span: [wnl] [Per observation and interview with the patient] Recent Memory: [ wnl] [3 out of 3 in 3 minutes] Remote Memory: [ impaired] [past events, as related history] Intelligence: [average] [based on history, based on vocabulary, syntax, grammar , and content] Judgement: [wnl] [per patient's behavior/history of present illness] Insight: [wnl] [understanding severity of illness/history of present illness] Start on Haldol 2 mg po bid (1) H/O medication noncompliance Current Visit: Yes Status: Acute Priority: Low Code(s): Z91.14 - PATIENT' S OTHER NONCOMPLIANCE WITH MEDICATION REGIMEN SNOMED Code(s): 086131011 (2) Psychosis Current Visit: No Status: Acute Priority: Low Code(s): F29 - UNSP PSYCHOSIS NOT DUE TO A SUBSTANCE OR KNOWN PHYSIOL COND SNOMED Code(s): 67693707 Plan: start on Haldol 2 mg bid Time with Patient: Less than 30
[2018-05-13 10:13] LABS: ALT 37 U/L (21-72); AST 27 U/L (17-59); Albumin 3.5 g/dL (3.5-5.0); Alkaline Phosphatase 79 U/L (38-126); Anion Gap 7 mmol/L; Blood Urea Nitrogen 16 mg/dL (9-20); Calcium 9.1 mg/dL (8.4-10.2); Carbon Dioxide 31 mmol/L (22-30); Chloride 104 mmol/L (98-107); Glucose 106 mg/dL (74-99); Potassium 4.6 mmol/L (3.5-5.1); Sodium 142 mmol/L (137-145); Total Bilirubin 0.6 mg/dL (0.2-1.3); Total Protein 6.4 g/dL (6.3-8.2)
--- NOTE | 2018-05-13 17:50 | CONS ---
CONSULTATION DATE OF CONSULTATION: 05/13/2018 REASON FOR CONSULTATION: Medical management requested by Dr. Brice. CONSULTATION: This is a 57-year-old patient of Dr. Powell who was recently in the hospital about 2 weeks ago, discharged by psychiatrist Dr. Brice. Patient was diagnosed with psychosis. Patient was discharged on Invega 9 mg at night time. Patient is on a court order. Patient was told that his medications were costing $900 as a co-pay, and since he did not take his medications, he was brought in by the police. He is not psychotic. He is comfortable. Lives with his mother. Has no abnormal train of thoughts right now. He was admitted through the ER. 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 He does smoke cigarettes occasionally. Tolerating a diet, up and about. He does also medical marijuana for multiple causes. REVIEW OF SYSTEMS: CONSTITUTIONAL: None. HEENT: None. RESPIRATORY: None. CARDIOVASCULAR: None. GASTROINTESTINAL: None. GENITOURINARY: None. MUSCULOSKELETAL: None. DERMATOLOGICAL: None. PSYCHIATRY: Currently none. NEUROLOGICAL: None. PAST MEDICAL HISTORY: Closed head injury, psychosis. PAST SURGICAL HISTORY: Lower back surgery. SOCIAL HISTORY: Smokes cigarettes off and on. Medical marijuana for multiple reasons. Lives with his mother. Retired from [employer]. FAMILY HISTORY: Reviewed; noncontributory to presentation. HOME MEDICATIONS: 1. Lamisil 250 mg a day. 2. Multivitamin 1 tablet p.o. daily. 3. Aspirin 81 mg a day. 4. Invega that was prescribed. He has not taken it for the last 2 or 3 days. ALLERGIES: NONE. PHYSICAL EXAMINATION: Temperature 97.7, pulse 67, respiration 18, blood pressure 136/78. Patient's other blood pressure readings were 150/77, 155/90, 169/87. GENERAL APPEARANCE: Well built; BMI 27.8. Sitting up, comfortable. EYES: Pupils equal. Conjunctivae normal. HEENT: External appearance of nose and ears normal. Oral cavity normal. Male pattern baldness. NECK: JVD not raised. Mass not palpable. RESPIRATORY: Effort normal. LUNGS: Slightly decreased breath sounds. CARDIOVASCULAR: First and second sounds normal. No edema. ABDOMEN: Soft, non-tender. Liver and spleen not palpable. LYMPHATIC: No lymph node palpable in neck or axillae. PSYCHIATRY: Alert and oriented x3. Mood and affect normal. INVESTIGATIONS: White count 7.6, hemoglobin 14.2, potassium 4.6. TSH normal. Urine drug screen positive for marijuana. ASSESSMENT: 1. Psychosis not otherwise specified, currently controlled. 2. Chronic nicotine dependence. Patient continues to smoke intermittently. 3. Patient does use medical marijuana for multiple reasons. 4. Fungal toenails; onychomycosis, for which patient uses Lamisil. 5. Male pattern baldness. PLAN: Patient to continue using the Lamisil. Patient advised to stop smoking completely. Will give the patient a nicotine patch at 7. Antipsychotic medications per his psychiatrist. Patient is currently put on Haldol, which definitely would be much cheaper and affordable. Patient is due to follow up with Dr. Powell after discharge. Thank you, Dr. Brice. MARILYN / ESAU: [id number] /
[2018-05-13] MEDS: NICOTINE 7MG/24HR PATCH TRANSDERM SCH (17:57)
[2018-05-13] MEDS: LISINOPRIL-HCTZ 10-12.5 MG 1 EACH TAB PO SCH (17:58)
[2018-05-13] MEDS: TERBINAFINE 250 MG TAB PO SCH (19:47)
[2018-05-13] MEDS: HALOPERIDOL 1 MG TAB PO SCH (20:43)
[2018-05-14] MEDS: ACETAMINOPHEN TAB 325 MG TAB PO PRN ×2 (03:13→16:32)
[2018-05-14] MEDS: TERBINAFINE 250 MG TAB PO SCH (08:02)
[2018-05-14] MEDS: HALOPERIDOL 1 MG TAB PO SCH ×2 (08:02→20:04)
[2018-05-14] MEDS: MULTIVITAMINS, THERA 1 EACH TAB PO SCH (08:02)
[2018-05-14] MEDS: LISINOPRIL-HCTZ 10-12.5 MG 1 EACH TAB PO SCH (08:03)
[2018-05-14] MEDS: ASPIRIN 81 MG PO SCH (08:03)
[2018-05-14] MEDS: NICOTINE 7MG/24HR PATCH TRANSDERM SCH (08:04)
--- NOTE | 2018-05-14 11:13 | P.PN ---
Subjective Progress Note Date: 05/14/18 Principal diagnosis: bipolar History of Present Illness: Patient 57-year-old male past medical history of psychiatric disease presents via police for mental evaluation. Patient states he does not know why he is here except that he believes that his mother called patient told he needed a mental evaluation. Blood force was not here for further HPI. According the edition documentation police patrol lieutenant observed patient having active visual or auditory hallucinations. Patient was also slightly incoherent. Documentation also reports that patient took mother's medications. Objective - Vital Signs Vital signs: Vital Signs Temp 97.5 F L 05/14/18 03:15 Pulse 75 05/14/18 03:15 Resp 16 05/14/18 03:15 BP 151/81 05/14/18 03:15 Pulse Ox 97 05/12/18 21:16 - Labs CBC & Chem 7: 05/13/18 09:28 05/13/18 09:28 Assessment and Plan Assessment: History of Present Illness Initial comments: This is a 57-year-old male who is brought in by the police under a court order. Patient admits has not taken his medications that he was told to take a couple days ago because he can't afford them. Patient states she has no other reason to be here. Patient states patient states he does not want to be here he does know why he is here. Patient states he is being treated for some transient mental disorder which she does not know the name of. Patient states there was no disturbances house he lives with his mother and she did not complain about him doing anything. Patient denies any physical complaints today. Patient denies headache patient denies chest pain difficult breathing shortest breath per patient denies any recent fever chills or cough. Patient denies abdominal pain patient denies nausea vomiting diarrhea. - Related Data Home Medications Medication Instructions Recorded Confirmed Acetaminophen [Tylenol] 1,000 mg PO Q4-6H PRN 05/12/18 05/12/18 Aspirin [Adult Low Dose Aspirin EC] 81 mg PO DAILY 05/12/18 05/12/18 Multivitamins, Thera [Multivitamin 1 tab PO DAILY 05/12/18 05/12/18 (formulary)] Terbinafine [LamISIL] 250 mg PO DAILY 05/12/18 05/12/18 Allergies Allergy/AdvReac Type Severity Reaction Status Date / Time No Known Allergies Allergy Verified 05/12/18 18:53 History of Present Illness: Patient 57-year-old male past medical history of psychiatric disease presents via police for mental evaluation. Patient states he does not know why he is here except that he believes that his mother called patient told he needed a mental evaluation. Blood force was not here for further HPI. According the edition documentation police patrol lieutenant observed patient having active visual or auditory hallucinations. Patient was also slightly incoherent. Documentation also reports that patient took mother's medications. Current Visit: Yes Status: Acute Priority: Low Hospital Course: Assessment and Plan Assessment: Past Medical History Additional Past Medical History / Comment(s): Closed head injury History of Any Multi-Drug Resistant Organisms: None Reported Past Surgical History: Back Surgery Past Psychological History: Unable to Obtain Smoking Status: Current some day smoker Past Alcohol Use History: Daily Past Drug Use History: None Reported Current Medications: [None reported at the current time] Constitutional Review: [Inclines of his toenails] Mental Status Examination - General Appearance: [appears older than stated age] Speech/Language: [ rapid ] Attitude/Behavior: [ guarded] Mood: [anxious, elated, irritable, angry] Affect: [wnl] Orientation: [time, person, place situation does not participate and full orientation] Thought Content: wnl Risk Factors: wnl] Perception: [wnl] Thought Processes: [concrete, circumstantial, tangential] Concentration/Attention Span: [wnl] [Per observation and interview with the patient] Recent Memory: [ wnl] [3 out of 3 in 3 minutes] Remote Memory: [ impaired] [past events, as related history] Intelligence: [average] [based on history, based on vocabulary, syntax, grammar , and content] Judgement: [wnl] [per patient's behavior/history of present illness] Insight: [wnl] [understanding severity of illness/history of present illness] Start on Haldol 2 mg po bid (1) H/O medication noncompliance Current Visit: Yes Status: Acute Priority: Low Code(s): Z91.14 - PATIENT' S OTHER NONCOMPLIANCE WITH MEDICATION REGIMEN SNOMED Code(s): 343718296 (2) Psychosis Current Visit: No Status: Acute Priority: Low Code(s): F29 - UNSP PSYCHOSIS NOT DUE TO A SUBSTANCE OR KNOWN PHYSIOL COND SNOMED Code(s): 28005023 Plan: start on Haldol 2 mg bid Time with Patient: Less than 30
[2018-05-15] MEDS: ACETAMINOPHEN TAB 325 MG TAB PO PRN (01:10)
[2018-05-15 01:13] VITALS: TEMP 98.5
[2018-05-15] MEDS ORDERED: HALOPERIDOL 0.5 MG TAB PO SCH (09:00)
[2018-05-15] MEDS: ASPIRIN 81 MG PO SCH (09:16)
[2018-05-15] MEDS: TERBINAFINE 250 MG TAB PO SCH (09:17)
[2018-05-15] MEDS: LISINOPRIL-HCTZ 10-12.5 MG 1 EACH TAB PO SCH (09:18)
[2018-05-15 09:19] VITALS: BP 158/72; PULSE 80; RESP 18
--- NOTE | 2018-05-15 09:21 | P.DS ---
Providers Date of admission: 05/12/18 21:01 Expected date of discharge: 05/15/18 Attending physician: Yovani Brice DO Consults: 05/12/18 21:31 Consult Physician Routine Consulting Provider: Simone Johns Consult Reason/Comments: H&P for mental health admission Do you want consulting provider notified?: Yes Primary care physician: Emeterio Powell - Discharge Diagnosis(es) (1) H/O medication noncompliance This is a 57-year-old male who is brought in by the police under a court order. Patient admits has not taken his medications that he was told to take a couple days ago because he can't afford them. Patient states she has no other reason to be here. Patient states patient states he does not want to be here he does know why he is here. Patient states he is being treated for some transient mental disorder which she does not know the name of. Patient states there was no disturbances house he lives with his mother and she did not complain about him doing anything. Patient denies any physical complaints today. Patient denies headache patient denies chest pain difficult breathing shortest breath per patient denies any recent fever chills or cough. Patient denies abdominal pain patient denies nausea vomiting diarrhea. - Related Data Home Medications Medication Instructions Recorded Confirmed Acetaminophen [Tylenol] 1,000 mg PO Q4-6H PRN 05/12/18 05/12/18 Aspirin [Adult Low Dose Aspirin EC] 81 mg PO DAILY 05/12/18 05/12/18 Multivitamins, Thera [Multivitamin 1 tab PO DAILY 05/12/18 05/12/18 (formulary)] Terbinafine [LamISIL] 250 mg PO DAILY 05/12/18 05/12/18 Allergies Allergy/AdvReac Type Severity Reaction Status Date / Time No Known Allergies Allergy Verified 05/12/18 18:53 Current Visit: Yes Status: Acute Priority: Low (2) Psychosis Current Visit: No Status: Acute Priority: Low Hospital Course: History of Present Illness: Patient 57-year-old male past medical history of psychiatric disease presents via police for mental evaluation. Patient states he does not know why he is here except that he believes that his mother called patient told he needed a mental evaluation. Blood force was not here for further HPI. According the edition documentation bank officer observed patient having active visual or auditory hallucinations. Patient was also slightly incoherent. Documentation also reports that patient took mother's medications. Current Visit: Yes Status: Acute Priority: Low Hospital Course: Assessment and Plan Assessment: Past Medical History Additional Past Medical History / Comment(s): Closed head injury History of Any Multi-Drug Resistant Organisms: None Reported Past Surgical History: Back Surgery Past Psychological History: Unable to Obtain Smoking Status: Current some day smoker Past Alcohol Use History: Daily Past Drug Use History: None Reported Current Medications: [None reported at the current time] Constitutional Review: [Inclines of his toenails] Mental Status Examination - General Appearance: [appears older than stated age] Speech/Language: [ rapid ] Attitude/Behavior: [ guarded] Mood: [anxious, elated, irritable, angry] Affect: [wnl] Orientation: [time, person, place situation does not participate and full orientation] Thought Content: wnl Risk Factors: wnl] Perception: [wnl] Thought Processes: wnl Concentration/Attention Span: [wnl] [Per observation and interview with the patient] Recent Memory: [ wnl] [3 out of 3 in 3 minutes] Remote Memory: [ impaired] [past events, as related history] Intelligence: [average] [based on history, based on vocabulary, syntax, grammar , and content] Judgement: [wnl] [per patient's behavior/history of present illness] Insight: [wnl] [understanding severity of illness/history of present illness] Hospital course: This 57-year-old single male living with his mother was readmitted feet of fact that he could not get Invega and his insurance and would cost him $ 900 a month. I placed him on haloperidol 2 mg twice a day and he tolerated well without any major side effects such as tardive dyskinesia. No major medical problems were identified on this hospitalization. As noted his mental status exam is well within normal and should do well on outpatient basis. Patient Condition at Discharge: Stable Plan - Discharge Summary Discharge Rx Participant: Yes New Discharge Prescriptions: New Haloperidol [Haldol] 2 mg PO BID 30 Days #60 tab Lisinopril-Hctz 10-12.5 mg [Zestoretic 10-12.5] 1 each PO DAILY tab Terbinafine [LamISIL] 250 mg PO DAILY tab Continue Aspirin [Adult Low Dose Aspirin EC] 81 mg PO DAILY Terbinafine [LamISIL] 250 mg PO DAILY Discontinued Multivitamins, Thera [Multivitamin (formulary)] 1 tab PO DAILY Acetaminophen [Tylenol] 1,000 mg PO Q4-6H PRN PRN Reason: Pain Discharge Medication List Aspirin [Adult Low Dose Aspirin EC] 81 mg PO DAILY 05/12/18 [History] Terbinafine [LamISIL] 250 mg PO DAILY 05/12/18 [History] Haloperidol [Haldol] 2 mg PO BID 30 Days #60 tab 05/15/18 [Rx] Lisinopril-Hctz 10-12.5 mg [Zestoretic 10-12.5] 1 each PO DAILY tab 05/15/18 [ Rx] Terbinafine [LamISIL] 250 mg PO DAILY tab 05/15/18 [Rx] Follow up Appointment(s)/Referral(s): [facility] [Outside] - 05/19/18 9:00 am (friday05/19/18 at 9 with Patrick - dania attend under court order. ) Tomer Powell MD [Primary Care Provider] - 1-2 days Discharge Disposition: HOME SELF-CARE
[2018-05-15] MEDS: MULTIVITAMINS, THERA 1 EACH TAB PO SCH ×2 (12:21→12:29)
== END 2018-05-15 13:20 | disposition home or self-care (01) | DRG 885 ==
LOC: EC 18:11 → 3MHU 21:01
PROVIDERS: ADMIT Psychiatry & Neurology Psychiatry; ATTEND Psychiatry & Neurology Psychiatry
DX: F29 Unspecified psychosis not due to a substance or known physiological condition (principal); B35.1 Tinea unguium; F17.210 Nicotine dependence, cigarettes, uncomplicated; Z79.82 Long term (current) use of aspirin; Z79.899 Other long term (current) drug therapy; Z91.14 Patient's other noncompliance with medication regimen; L64.9 Androgenic alopecia, unspecified
CPT/HCPCS: 80053; 80306; 82075; 84443; 85025; 99285